=== PATIENT | female | born 1960 | race Caucasian/White ===

== ENCOUNTER → 2016-09-23 | Outpatient (CLI) | payer OTHER ==
--- NOTE | 2016-09-23 13:06 | RAD ---
Indication smoking history. Discomfort in the upper abdomen. PA and lateral views of the chest were obtained. Comparison is made to a study 02/03/2012. There are probable background changes of fibrosis. Heart size and pulmonary vessels are within normal limits. There is no consolidated pneumonia. Significant pleural fluid is not seen. There is no pneumothorax. IMPRESSION: No acute or focal process is seen in the chest.
== END | disposition home or self-care (01) ==
LOC: DXRADRC 12:36
PROVIDERS: ATTEND Nurse Practitioner Family
DX: R10.10 Upper abdominal pain, unspecified (principal); Z72.0 Tobacco use
CPT/HCPCS: 71020

== ENCOUNTER → 2016-11-04 | Outpatient (CLI) | payer OTHER ==
[~2016-11-04] VITALS: Ht 157.5 cm; Wt 81.6 kg
[~2016-11-04] MED LIST: SINCALIDE 1.63 MCG in IV NORMAL SALINE 50ML 30 ML IV ONE
--- NOTE | 2016-11-04 09:21 | RAD ---
Indication epigastric pain. Nausea and vomiting. Grayscale imaging was performed. Examination was targeted to the right upper quadrant. The visualized pancreas appears unremarkable. The gallbladder appears normal. The common bile duct diameter of approximately 4 mm is normal. There is a 1.6 cm mass seen associated with the right kidney. This demonstrates increased echogenicity and may be fatty in nature.. (Note is made that a CT examination 02/03/2012 demonstrated a cyst measuring approximately 2.6 cm in greatest dimension). A follow-up CT examination should be considered. There is increased echogenicity in the liver compatible with a fatty liver. There is an 8 mm cyst seen in the liver. IMPRESSION: Normal gallbladder. Fatty infiltration of the liver. Hepatic cyst. Indeterminate 1.6 cm mass associated with the right kidney. CT advised for additional evaluation
--- NOTE | 2016-11-04 11:46 | RAD ---
Indication abdominal pain. Nausea and vomiting for 3 weeks. Hepatobiliary scan was performed. 5.4 mCi of technetium labeled Choletec was administered. 1.6 mcg of CCK was diluted in saline and administered over 30 minutes. There is normal uptake of radiopharmaceutical in the liver. Activity is seen early in the biliary system and gallbladder. Following the Kinevac administration the estimated gallbladder ejection fraction is slightly in excess of 80%. IMPRESSION: Normal study
== END | disposition home or self-care (01) ==
LOC: US 07:56
PROVIDERS: ATTEND Internal Medicine Gastroenterology
DX: R10.13 Epigastric pain (principal); K76.89 Other specified diseases of liver; K76.0 Fatty (change of) liver, not elsewhere classified
CPT/HCPCS: 76705; 78226; 96374; 96375; A9537; J2805

== ENCOUNTER → 2016-11-11 | Outpatient (CLI) | payer OTHER ==
[~2016-11-11] MED LIST changes: +IOHEXOL 240 MG/ML 50ML VIAL. ONE; +IOHEXOL 300 MG/ML 75 ML VIAL. IV ONE; -SINCALIDE 1.63 MCG in IV NORMAL SALINE 50ML 30 ML IV ONE
--- NOTE | 2016-11-11 10:45 | RAD ---
Examination: CT of the abdomen and pelvis with oral and IV contrast History: History of renal mass, hepatic cyst, epigastric pain Comparison: None available Technique: Axial CT images of the abdomen pelvis were performed with oral and IV contrast. Coronal and sagittal reformats were performed PQRS Compliance Statement: One or more of the following individualized dose reduction techniques were utilized for this examination: 1. Automated exposure control 2. Adjustment of the mA and/or kV according to patient size 3. Use of iterative reconstruction technique Findings: Minimal bibasal lung atelectasis identified No evidence of free air identified in the abdomen There is a 9.5 mm cyst is identified in the right lobe of the liver and a smaller 6 mm cyst is identified in the inferior right lobe liver. The visualized spleen, adrenals grossly appears unremarkable. The gallbladder is mildly distended. The stomach is mildly distended . Visualized pancreas grossly appears unremarkable. The small bowel is nondilated. The appendix grossly appears unremarkable. Feces and gas noted throughout the colon. Few sigmoid colon diverticulosis. The urinary bladder is minimally distended. The visualized uterus, adnexa grossly appears unremarkable. The bilateral kidneys enhance symmetrically. There is a cystic structure identified in the right kidney measuring 2.6 cm likely a cyst. In the inferior aspect of the lateral portion of the right kidney, there is a fatty lesion identified measuring 1.5 x 1.1 cm likely an angiomyolipoma. No evidence of lytic bony destructive lesion identified. Impression: 1. 1.5 cm fatty lesion identified in the lateral aspect of the inferior right kidney likely angiomyolipoma. 2. Right renal cyst. 3. Small liver cysts. 4. Few sigmoid colon diverticulosis.
== END | disposition home or self-care (01) ==
LOC: CT 08:00
PROVIDERS: ATTEND Internal Medicine Gastroenterology
DX: N28.89 Other specified disorders of kidney and ureter (principal); K57.30 Diverticulosis of large intestine without perforation or abscess without bleeding; K76.89 Other specified diseases of liver; N28.1 Cyst of kidney, acquired
CPT/HCPCS: 74177; Q9966; Q9967

== ENCOUNTER → 2016-12-12 | Outpatient (CLI) | payer OTHER ==
--- NOTE | 2016-12-12 11:27 | RAD ---
Examination: Gastric Emptying Scintigraphy: Radiopharmaceutical: 2 mCi Tc-99m sulfur colloid mixed with solid meal History: Abdominal pain. Findings: A routine solid-phase gastric emptying scintigraphy examination was performed. Time activity curve was plotted. The T half measures 103 minutes. Impression: The gastric emptying is within upper limits of normal.
== END | disposition home or self-care (01) ==
LOC: NM 07:23
PROVIDERS: ATTEND Internal Medicine Gastroenterology
DX: R10.13 Epigastric pain (principal)
CPT/HCPCS: 78264; A9541

== ENCOUNTER → 2017-03-10 | Outpatient (CLI) | payer OTHER ==
--- NOTE | 2017-03-10 16:00 | RAD ---
Examination: 5 views of the lumbar spine History: History of lumbar pain for 2 months Comparison: None available Findings: The vertebral body heights are maintained. No evidence of listhesis. Mild degenerative changes facet joints at L3-L4, L4-L5, L5-S1 vertebral levels. Mild intervertebral disc height loss identified throughout the lumbar spine. No evidence of spondylolysis. Moderate aortic atherosclerosis. Impression: Mild degenerative changes lumbar spine.
== END | disposition home or self-care (01) ==
LOC: DXRADRC 10:37
PROVIDERS: ATTEND Physician Assistant
DX: M47.816 Spondylosis without myelopathy or radiculopathy, lumbar region (principal)
CPT/HCPCS: 72110

== ENCOUNTER → 2017-07-25 | Outpatient (CLI) | payer OTHER ==
--- NOTE | 2017-07-25 15:56 | RAD ---
Right supraclavicular ultrasound, 07/25/2017: History: Soft tissue enlargement The area of concern in the area of the right supraclavicular region was carefully scanned. Normal muscular and fatty shadows are seen. A small benign-appearing lymph node is seen. No mass is evident. IMPRESSION: No significant abnormality is detected. Clinical surveillance is suggested and if clinical concern persists CT or MR imaging may be useful for further evaluation.
== END | disposition home or self-care (01) ==
LOC: US 13:37
PROVIDERS: ATTEND Nurse Practitioner Family
DX: R22.1 Localized swelling, mass and lump, neck (principal)
CPT/HCPCS: 76536

== ENCOUNTER → 2017-12-20 | Outpatient (CLI) | payer OTHER ==
--- NOTE | 2017-12-20 14:13 | RAD ---
DATE: 12/20/2017 EXAM: DIGITAL SCREEN BILAT W/CAD HISTORY: Routine screening COMPARISON: 06/08/2016 This study was interpreted with the benefit of Computerized Aided Detection (CAD). The breast parenchyma shows scattered fibroglandular densities. Breast parenchyma level B. FINDINGS: No new or enlarging breast densities are seen. Minimal benign type calcifications are present. No suspicious microcalcifications have developed. IMPRESSION: Stable mammograms without evidence of malignancy. BI-RADS CATEGORY: 2 BENIGN FINDING(S) RECOMMENDED FOLLOW-UP: 12M 12 MONTH FOLLOW-UP PQRS compliance statement: Patient information was entered into a reminder system with a target due date for the next mammogram. Mammography is a sensitive method for finding small breast cancers, but it does not detect them all and is not a substitute for careful clinical examination. A negative mammogram does not negate a clinically suspicious finding and should not result in delay in biopsying a clinically suspicious abnormality. "Our facility is accredited by the [employer] Mammography Program."
== END | disposition home or self-care (01) ==
LOC: MAMMO 10:35
PROVIDERS: ATTEND Physician Assistant
DX: Z12.31 Encounter for screening mammogram for malignant neoplasm of breast (principal)
CPT/HCPCS: 77067

== ENCOUNTER → 2018-01-30 | Outpatient (CLI) | payer OTHER ==
--- NOTE | 2018-01-30 12:16 | RAD ---
Right RIBS with chest, 3 views, 01/30/2018: HISTORY: Rib pain No right rib fracture or bony abnormality is detected. There is no evidence of underlying pneumothorax or hemothorax. There are linear opacities in the lower chest bilaterally compatible with atelectasis versus scarring. The heart size is normal. IMPRESSION: 1. No significant right rib abnormality is detected. 2. Mild bibasilar discoid atelectasis. Electronically signed by: Jonathan Connelly MD (01/30/2018 12:13 PM) [facility]
== END | disposition home or self-care (01) ==
LOC: PMG 10:08
PROVIDERS: ATTEND Physician Assistant
DX: J98.11 Atelectasis (principal)
CPT/HCPCS: 71101

== ENCOUNTER 2018-02-14 01:06 | Observation (INO) | payer OTHER ==
[~2018-02-14] VITALS: Ht 157.5 cm; Wt 89.6 kg
--- NOTE | 2018-02-14 01:13 | ED.ADGEN ---
Past History Past Medical History: GERD, Hypertension Smoking: Cigarettes Adult General Chief Complaint Chief Complaint ". I ve been having epigastric discomfort..."."Zohra up into my chest... I been having it every night the last three days.." HPI HPI Patient is a 57 year old female who presents with above hx and complaints. Pt. localizes pain in epigastric area that radiates to her left chest. Pt. states pain in moderately severe. Patient does have a history of previous GERD. Patient does smoke. No history of diabetes. History of prior cardiac problems. No recent trauma. No recent travel. No changes in meds. Patient does have a history of some hypertension. Patient normally follows Dr. Sears. Review of Systems Review of Systems Constitutional: Denies fever or chills [] Eyes: Denies change in visual acuity, redness, or eye pain [] HENT: Denies nasal congestion or sore throat [] Respiratory: Denies cough or shortness of breath [] Cardiovascular: No additional information not addressed in HPI [] GI: Denies abdominal pain, nausea, vomiting, bloody stools or diarrhea [] : Denies dysuria or hematuria [] Musculoskeletal: Denies back pain or joint pain [] Integument: Denies rash or skin lesions [] Neurologic: Denies headache, focal weakness or sensory changes [] Endocrine: Denies polyuria or polydipsia [] All other systems were reviewed and found to be within normal limits, except as documented in this note. Family History Family History Noncontributory Current Medications Current Medications Current Medications Medications (Trade) Dose Ordered Sig/Sheyla Start Time Stop Time Status Last Admin Dose Admin Aspirin (Children'S Aspirin) 324 mg 1X ONCE 02/14/18 01:30 02/14/18 01:31 DC 02/14/18 01:46 324 MG Enoxaparin Sodium (Lovenox 80mg Syringe) 80 mg 1X ONCE 02/14/18 01:30 02/14/18 02:30 DC 02/14/18 01:55 80 MG Famotidine (Pepcid Vial) 20 mg 1X ONCE 02/14/18 01:30 02/14/18 01:31 DC 02/14/18 01:51 20 MG Magnesium Hydroxide (Milk Of Magnesia) 2,400 mg 1X ONCE 02/14/18 01:30 02/14/18 01:31 DC 02/14/18 01:49 2,400 MG Nitroglycerin (Nitro-Bid Oint) 1 inch 1X ONCE 02/14/18 02:00 02/14/18 02:01 DC 02/14/18 01:49 1 INCH Sodium Chloride 1,000 ml @ 100 mls/hr Q10H 02/14/18 01:30 02/14/18 11:29 02/14/18 01:44 100 MLS/HR Allergies Allergies Allergies Coded Allergies Type Severity Reaction Last Updated Verified No Known Drug Allergies 11/04/16 No Physical Exam Physical Exam Constitutional: Moderately acute distress, non-toxic appearance. [] HENT: Normocephalic, atraumatic, bilateral external ears normal, oropharynx moist, no oral exudates, nose normal. [] Eyes: PERRLA, EOMI, conjunctiva normal, no discharge. [] Neck: Normal range of motion, no tenderness, supple, no stridor. [] Cardiovascular:Heart rate regular rhythm, no murmur [] Lungs & Thorax: Bilateral breath sounds equal with scattered wheezes auscultation [] Abdomen: Bowel sounds normal, soft, epigastric tenderness, no masses, no pulsatile masses. []Patient declines rectal at this time. Skin: Warm, dry, no erythema, no rash. [] Back: No tenderness, no CVA tenderness. [] Extremities: No tenderness, no cyanosis, no clubbing, ROM intact, no edema. [] No cording appreciated. Neurologic: Alert and oriented X 3, normal motor function, normal sensory function, no focal deficits noted. [] Psychologic: Affect anxious, judgement normal, mood normal. [] Current Patient Data Vital Signs Vital Signs Date Time Temp Pulse Resp B/P (MAP) Pulse Ox O2 Delivery O2 Flow Rate FiO2 02/14/18 01:49 65 183/102 02/14/18 01:43 14 95 Room Air 02/14/18 01:07 98.6 Lab Results Laboratory Tests Test 02/14/18 01:25 White Blood Count 11.9 x10^3/uL (4.0-11.0) H Red Blood Count 4.79 x10^6/uL (3.50-5.40) Hemoglobin 14.0 g/dL (12.0-15.5) Hematocrit 41.9 % (36.0-47.0) Mean Corpuscular Volume 88 fL (79-100) Mean Corpuscular Hemoglobin 29 pg (25-35) Mean Corpuscular Hemoglobin Concent 34 g/dL (31-37) Red Cell Distribution Width 14.9 % (11.5-14.5) H Platelet Count 325 x10^3/uL (140-400) Neutrophils (%) (Auto) 64 % (31-73) Lymphocytes (%) (Auto) 26 % (24-48) Monocytes (%) (Auto) 6 % (0-9) Eosinophils (%) (Auto) 3 % (0-3) Basophils (%) (Auto) 1 % (0-3) Neutrophils # (Auto) 7.6 x10^3uL (1.8-7.7) Lymphocytes # (Auto) 3.2 x10^3/uL (1.0-4.8) Monocytes # (Auto) 0.7 x10^3/uL (0.0-1.1) Eosinophils # (Auto) 0.3 x10^3/uL (0.0-0.7) Basophils # (Auto) 0.1 x10^3/uL (0.0-0.2) Prothrombin Time 10.3 SEC (9.4-11.4) Prothrombin Time INR 1.0 (0.9-1.1) PTT 24 SEC (23-33) D-Dimer (Esmer) 0.47 mg/L (0.00-0.50) Sodium Level 141 mmol/L (136-145) Potassium Level 3.2 mmol/L (3.5-5.1) L Chloride Level 103 mmol/L (98-107) Carbon Dioxide Level 27 mmol/L (21-32) Anion Gap 11 (6-14) Blood Urea Nitrogen 9 mg/dL (7-20) Creatinine 1.0 mg/dL (0.6-1.0) Estimated GFR (Cockcroft-Gault) 56.7 Glucose Level 150 mg/dL (70-99) H Calcium Level 9.1 mg/dL (8.5-10.1) Magnesium Level 2.2 mg/dL (1.8-2.4) Total Bilirubin 0.6 mg/dL (0.2-1.0) Direct Bilirubin 0.1 mg/dL (0.0-0.2) Aspartate Amino Transferase (AST) 18 U/L (15-37) Alanine Aminotransferase (ALT) 12 U/L (14-59) L Alkaline Phosphatase 80 U/L (46-116) Creatine Kinase 100 U/L (26-192) Creatine Kinase MB (Mass) 0.8 ng/mL (0.0-3.6) Creatine Kinase MB Relative Index 0.8 % (0-4) Troponin I Quantitative < 0.017 ng/mL (0-0.055) CK-Tlg-G-Type Natriuretic Peptide 64 pg/mL (0-124) Total Protein 7.7 g/dL (6.4-8.2) Albumin 3.5 g/dL (3.4-5.0) Lipase 103 U/L (73-393) EKG EKG My interpretation of EKG shows a sinus rhythm at 74 bpm. Left axis. No findings acute STEMI with contralateral changes.[] Radiology/Procedures Radiology/Procedures My interpretation chest x-ray shows no acute cardiopulmonary findings. Does have some findings of linear infiltrates or atelectasis.[] Course & Med Decision Making Course & Med Decision Making Pertinent Labs and Imaging studies reviewed. (See chart for details) Discussed presentation, testing and tx. plan with Dr Oneal- will admit for further eval. and tx. [] Final Impression Final Impression 1. Chest pain/epigastric pain 2. Hypertension-Accelerated 3. Tobacco use[] 4. DM - elevated Glucose 5. Hx. GERD 6. Leukocytosis 7. Hypokalemia Dragon Disclaimer Dragon Disclaimer This electronic medical record was generated, in whole or in part, using a voice recognition dictation system. JACOBY GALEANA MD Feb 14, 2018 01:13
[2018-02-14] MEDS ORDERED: IV NORMAL SALINE 1,000ML 1,000 ML IV SCH (01:30)
[2018-02-14] MEDS ORDERED: MAGNESIUM HYDROXIDE 2,400 MG/30 ML ORAL.SUSP. PO ONE (01:30)
[2018-02-14] MEDS ORDERED: ENOXAPARIN ** NOTE DOSE ** SYRINGE SQ ONE ×2 (01:30→03:00)
[2018-02-14] MEDS ORDERED: ASPIRIN 81 MG TAB.CHEW PO ONE (01:30)
[2018-02-14] MEDS ORDERED: FAMOTIDINE 20 MG/2 ML VIAL IVP ONE (01:30)
[2018-02-14 01:46] LABS: BASO # 0.1 x10^3/uL (0.0-0.2); BASO % 1 % (0-3); EOS # 0.3 x10^3/uL (0.0-0.7); EOS % 3 % (0-3); HEMATOCRIT 41.9 % (36.0-47.0); LYMPH # 3.2 x10^3/uL (1.0-4.8); LYMPH % 26 % (24-48); MEAN CORPUSCULAR HEMOGLOBIN 29 pg (25-35); MEAN CORPUSCULAR HGB CONC 34 g/dL (31-37); MEAN CORPUSCULAR VOLUME 88 fL (79-100); MONO # 0.7 x10^3/uL (0.0-1.1); MONO % 6 % (0-9); NEUT # 7.6 x10^3uL (1.8-7.7); NEUT % 64 % (31-73); PLATELET COUNT 325 x10^3/uL (140-400); RED BLOOD COUNT 4.79 x10^6/uL (3.50-5.40); RED CELL DISTRIBUTION WIDTH 14.9 % (11.5-14.5); WHITE BLOOD COUNT 11.9 x10^3/uL (4.0-11.0)
[2018-02-14] MEDS ORDERED: NITROGLYCERIN OINT 1 GM PACKET. TP ONE (02:00)
[2018-02-14 02:06] LABS: ALBUMIN 3.5 g/dL (3.4-5.0); CALCIUM 9.1 mg/dL (8.5-10.1); DIRECT BILIRUBIN 0.1 mg/dL (0.0-0.2); GFR 56.7; MAGNESIUM 2.2 mg/dL (1.8-2.4); POTASSIUM 3.2 mmol/L (3.5-5.1); TOTAL BILIRUBIN 0.6 mg/dL (0.2-1.0); TOTAL PROTEIN 7.7 g/dL (6.4-8.2)
[2018-02-14] MEDS ORDERED: ONDANSETRON PF 4 MG/2 ML VIAL. IV PRN (02:15)
[2018-02-14] MEDS ORDERED: AZITHROMYCIN 250 MG TABLET. PO ONE ×2 (02:15→02:45)
[2018-02-14] MEDS ORDERED: MORPHINE SULFATE 2 MG/ML DISP.SYRIN. IV PRN (02:15)
[2018-02-14 02:28] LABS: BARBITURATES NEG (NEG); BENZODIAZEPINES NEG (NEG); CANNABINOIDS POS (NEG); COCAINE NEG (NEG); METHADONE NEG (NEG); OPIATES NEG (NEG); PHENCYCLIDINE NEG (NEG)
[2018-02-14 02:29] LABS: AMPHETAMINE/METHAMPHETAMINE NEG (NEG)
[2018-02-14] MEDS ORDERED: POTASSIUM CHLORIDE 20 MEQ/15 ML ORAL LIQUID. PO ONE (02:30)
[2018-02-14 02:32] LABS: BACTERIA,URINE FEW /HPF (0-FEW); BILIRUBIN,URINE NEG (NEG); CLARITY,URINE CLEAR; COLOR,URINE STRAW; GLUCOSE,URINE NEG (NEG); NITRITE,URINE NEG (NEG); RBC,URINE RARE /HPF (0-2); SQUAMOUS EPITHELIAL CELL,UR OCC /LPF; UROBILINOGEN,URINE 0.2 mg/dL (0.2 mg/dL); WBC,URINE OCC /HPF (0-4)
[2018-02-14] MEDS ORDERED: ANTI-COAG MONITOR BY PHARMACY. MC PRN (02:45)
[2018-02-14 04:29] VITALS: BP 148/89
[2018-02-14] MEDS ORDERED: LOSA50TA6 PO (04:53)
[2018-02-14] MEDS ORDERED: VARE1TAB20 PO (04:53)
[2018-02-14] MEDS ORDERED: ATOR10TA60 PO (04:53)
[2018-02-14] MEDS ORDERED: ASPI-630 PO (04:53)
[2018-02-14] MEDS ORDERED: MIRA50TA PO (04:53)
[2018-02-14] MEDS ORDERED: DEXL60CA2 PO (04:53)
[2018-02-14] MEDS ORDERED: ERYT250T14 PO (04:53)
[2018-02-14] MEDS ORDERED: PANTOPRAZOLE 40 MG TABLET. PO SCH (07:30)
--- NOTE | 2018-02-14 07:57 | RAD ---
Chest, 2 views, 02/14/2018: HISTORY: Chest and epigastric pain Comparison is made to a study from 01/30/2018. The heart size and pulmonary vascularity are normal. There are unchanged linear opacities in the lower chest bilaterally suggesting scarring. No pulmonary consolidation is seen. There is no evidence of pleural fluid. IMPRESSION: 1. Unchanged bilateral linear lower chest opacities compatible scarring. Recurrent discoid atelectasis is less likely. 2. The chest is otherwise unremarkable. Electronically signed by: Jonathan Connelly MD (02/14/2018 7:54 AM) [facility]
[2018-02-14] MEDS ORDERED: ASPIRIN 81 MG TAB.CHEW PO SCH ×2 (08:00→09:00)
[2018-02-14] MEDS ORDERED: ENOXAPARIN ** NOTE DOSE ** SYRINGE SQ SCH (09:00)
[2018-02-14] MEDS ORDERED: VARENICLINE 1 MG TABLET. PO SCH (09:00)
[2018-02-14] MEDS ORDERED: NITROGLYCERIN OINT 1 GM PACKET. TP SCH (09:00)
[2018-02-14] MEDS ORDERED: LOSARTAN 50 MG TABLET. PO SCH (09:00)
[2018-02-14] MEDS ORDERED: ERYTHROMYCIN BASE 250 MG TABLET PO SCH (09:00)
[2018-02-14] MEDS ORDERED: MIRABEGRON 25 MG TAB.ER.24H PO SCH (09:00)
[2018-02-14] MEDS ORDERED: FAMOTIDINE 20 MG TABLET PO SCH (09:00)
[2018-02-14] MEDS ORDERED: VARENICLINE 0.5 MG TABLET. PO SCH (09:30)
--- NOTE | 2018-02-14 10:39 | PDOC2 ---
RODERICKSAHRA Lara RAJWINDER 02/14/18 1039: CONSULT Date of Admission DATE: 02/14/18 TIME: 10:38 Reason for Consult: cp Problem List Problems Medical Problems: (1) Chest discomfort Status: Acute History of Present Illness Ms Austin is a 57 year old female who presents with complaints of epigastric and chest discomfort. She describes epigastric pain that she experiences frequently in the evening after eating. The discomfort usually lasts for several hours, is non radiating and not exertional. She states that last pm she had a late dinner, began to have epigastric discomfort that felt like a pressure or "bloating" which then radiated to her left chest and neck with an associated headache. She reports that she presented for evaluation since this was worse than usual. She denies any increase in symptoms with exertion, movement, position or deep inspiration. She was treated with nitrates in the ED but does not believe that improved her symptoms. She reports this am she continues to have mild epigastric discomfort that has never completely resolved but is improved. She denies other chest pain/discomfort, She denies dyspnea, congestive symptoms, palpitations, lightheadedness or syncope. She reports a history of gastroparesis and only eating once a day at dinner time. Cardiovascular: HTN, hyperipidemia GI: GERD, Other (gastroparesis) Hepatobiliary: Other (Hepatitis C) Musculoskeletal: low back pain Past Surgical History c-sections Family History hypothyroid, heart failure / sudden cardiac in her mother at age 59 Social History + 1/2 ppd smoker, she denies any significant ETOH. She denies any drug use but her UDS is positive for THC. Current Medications Current Medications Aspirin (Children'S Aspirin) 324 mg 1X ONCE PO Last administered on 02/14/18at 01:46; Start 02/14/18 at 01:30; Stop 02/14/18 at 01:31; Status DC Sodium Chloride 1,000 ml @ 100 mls/hr Q10H IV Last administered on 02/14/18at 01:44; Start 02/14/18 at 01:30; Stop 02/14/18 at 11:29 Magnesium Hydroxide (Milk Of Magnesia) 2,400 mg 1X ONCE PO Last administered on 02/14/18at 01:49; Start 02/14/18 at 01:30; Stop 02/14/18 at 01:31; Status DC Famotidine (Pepcid Vial) 20 mg 1X ONCE IVP Last administered on 02/14/18at 01: 51; Start 02/14/18 at 01:30; Stop 02/14/18 at 01:31; Status DC Nitroglycerin (Nitro-Bid Oint) 1 inch 1X ONCE TP Last administered on at 01:49; Start 02/14/18 at 02:00; Stop 02/14/18 at 02:01; Status DC Enoxaparin Sodium (Lovenox 80mg Syringe) 80 mg 1X ONCE SQ Last administered on 02/14/18at 01:55; Start 02/14/18 at 01:30; Stop 02/14/18 at 02:30; Status DC Potassium Chloride (KCl Oral Soln) 40 meq 1X ONCE PO Last administered on 02/14at 02:30; Start 02/14/18 at 02:30; Stop 02/14/18 at 02:31; Status DC Ondansetron HCl (Zofran) 4 mg PRN Q4HRS PRN IV NAUSEA/VOMITING; Start 02/14/18 at 02:15; Stop 02/15/18 at 02:14 Morphine Sulfate (Morphine 2mg Syringe) 2 mg PRN Q2HR PRN IV PAIN; Start at 02:15; Stop 02/15/18 at 02:14 Enoxaparin Sodium (Lovenox 100mg Syringe) 90 mg Q12HR SQ Last administered on at 09:51; Start 02/14/18 at 09:00 Nitroglycerin (Nitro-Bid Oint) 1 inch TID TP ; Start 02/14/18 at 09:00; Stop at 10:00; Status DC Aspirin (Children'S Aspirin) 81 mg DAILY PO ; Start 02/14/18 at 09:00; Stop at 09:00; Status DC Famotidine (Pepcid) 20 mg BID PO Last administered on 02/14/18at 09:50; Start at 09:00 Azithromycin (Zithromax) 500 mg 1X ONCE PO Last administered on 02/14/18at 02: 45; Start 02/14/18 at 02:45; Stop 02/14/18 at 02:46; Status DC Azithromycin (Zithromax) 250 mg 1X ONCE PO ; Start 02/14/18 at 02:15; Stop at 02:16; Status UNV Azithromycin (Zithromax) 250 mg QHS PO ; Start 02/14/18 at 21:00 Enoxaparin Sodium (Lovenox 100mg Syringe) 90 mg 1X ONCE SQ ; Start 02/14/18 at 03:00; Stop 02/14/18 at 03:01; Status DC Info (Anti-Coagulation Monitoring By Pharmacy) 1 each PRN DAILY PRN MC SEE COMMENTS; Start 02/14/18 at 02:45 Erythromycin (E-Mycin) 250 mg BID PO Last administered on 02/14/18at 09:49; Start 02/14/18 at 09:00 Losartan Potassium (Cozaar) 50 mg DAILY PO Last administered on 02/14/18at 09:48 ; Start 02/14/18 at 09:00 Aspirin (Children'S Aspirin) 81 mg [id number] PO Last administered on at 07:42; Start 02/14/18 at 08:00 Atorvastatin Calcium (Lipitor) 10 mg QHS PO ; Start 02/14/18 at 21:00 Pantoprazole Sodium (Protonix) 40 mg DAILYAC PO Last administered on 02/14/18at 07:42; Start 02/14/18 at 07:30 Mirabegron (Myrbetriq) 50 mg DAILY PO Last administered on 02/14/18at 09:49; Start 02/14/18 at 09:00 Varenicline (Chantix) 1 mg BID PO ; Start 02/14/18 at 09:00; Stop 02/14/18 at 09 :25; Status DC Varenicline (Chantix) 1 mg BID PO ; Start 02/14/18 at 09:30 Active Scripts Active Reported Myrbetriq (Mirabegron) 50 Mg Tab.er.24h 50 Mg PO DAILY Losartan Potassium 50 Mg Tablet 50 Mg PO DAILY Aspirin 81 Mg Tab.chew 81 Mg PO DAILY Chantix (Varenicline Tartrate) 1 Each Tab.ds.pk 1 Mg PO BID Erythromycin (Erythromycin Base) 250 Mg Tablet 250 Mg PO BID Dexilant (Dexlansoprazole) 60 Mg Cap.mp 30 Mg PO DAILY Atorvastatin Calcium 10 Mg Tablet 10 Mg PO QHS Allergies: Coded Allergies: No Known Drug Allergies (Unverified , 11/04/16) Review of System as per HPI with addition of chronic diarrhea otherwise negative General: Alert, Oriented X3, Cooperative, No acute distress HEENT: Atraumatic, EOMI, Mucous membr. moist/pink Lungs: Clear to auscultation Heart: Normal S1, Normal S2, Other (no significant murmurs, no clicks,rubs or gallops) Abdomen: Normal bowel sounds, Soft, No tenderness Extremities: No cyanosis, No edema, Normal pulses Neuro: Normal speech, Strength at 5/5 X4 ext Psych/Mental Status: Mental status NL, Mood NL VITALS Vital Signs Date Time Temp Pulse Resp B/P (MAP) Pulse Ox O2 Delivery O2 Flow Rate FiO2 02/14/18 09:48 57 148/89 02/14/18 04:30 Room Air 02/14/18 04:29 98.2 20 97 Labs Laboratory Tests Test 02/14/18 01:25 02/14/18 02:10 02/14/18 07:10 White Blood Count 11.9 x10^3/uL (4.0-11.0) Red Blood Count 4.79 x10^6/uL (3.50-5.40) Hemoglobin 14.0 g/dL (12.0-15.5) Hematocrit 41.9 % (36.0-47.0) Mean Corpuscular Volume 88 fL (79-100) Mean Corpuscular Hemoglobin 29 pg (25-35) Mean Corpuscular Hemoglobin Concent 34 g/dL (31-37) Red Cell Distribution Width 14.9 % (11.5-14.5) Platelet Count 325 x10^3/uL (140-400) Neutrophils (%) (Auto) 64 % (31-73) Lymphocytes (%) (Auto) 26 % (24-48) Monocytes (%) (Auto) 6 % (0-9) Eosinophils (%) (Auto) 3 % (0-3) Basophils (%) (Auto) 1 % (0-3) Neutrophils # (Auto) 7.6 x10^3uL (1.8-7.7) Lymphocytes # (Auto) 3.2 x10^3/uL (1.0-4.8) Monocytes # (Auto) 0.7 x10^3/uL (0.0-1.1) Eosinophils # (Auto) 0.3 x10^3/uL (0.0-0.7) Basophils # (Auto) 0.1 x10^3/uL (0.0-0.2) Prothrombin Time 10.3 SEC (9.4-11.4) Prothromb Time International Ratio 1.0 (0.9-1.1) Activated Partial Thromboplast Time 24 SEC (23-33) D-Dimer (Esmer) 0.47 mg/L (0.00-0.50) Sodium Level 141 mmol/L (136-145) Potassium Level 3.2 mmol/L (3.5-5.1) Chloride Level 103 mmol/L (98-107) Carbon Dioxide Level 27 mmol/L (21-32) Anion Gap 11 (6-14) Blood Urea Nitrogen 9 mg/dL (7-20) Creatinine 1.0 mg/dL (0.6-1.0) Estimated GFR (Cockcroft-Gault) 56.7 Glucose Level 150 mg/dL (70-99) Calcium Level 9.1 mg/dL (8.5-10.1) Magnesium Level 2.2 mg/dL (1.8-2.4) Total Bilirubin 0.6 mg/dL (0.2-1.0) Direct Bilirubin 0.1 mg/dL (0.0-0.2) Aspartate Amino Transf (AST/SGOT) 18 U/L (15-37) Alanine Aminotransferase (ALT/SGPT) 12 U/L (14-59) Alkaline Phosphatase 80 U/L (46-116) Creatine Kinase 100 U/L (26-192) Creatine Kinase MB (Mass) 0.8 ng/mL (0.0-3.6) Creatine Kinase MB Relative Index 0.8 % (0-4) Troponin I Quantitative < 0.017 ng/mL (0-0.055) < 0.017 ng/mL (0-0.055) OU-Rap-Z-Type Natriuretic Peptide 64 pg/mL (0-124) Total Protein 7.7 g/dL (6.4-8.2) Albumin 3.5 g/dL (3.4-5.0) Lipase 103 U/L (73-393) Urine Collection Type Void Urine Color Straw Urine Clarity Clear Urine pH 6.5 Urine Specific [place] 1.010 Urine Protein Neg (NEG-TRACE) Urine Glucose (UA) Neg mg/dL (NEG) Urine Ketones (Stick) Neg mg/dL (NEG) Urine Blood Trace (NEG) Urine Nitrite Neg (NEG) Urine Bilirubin Neg (NEG) Urine Urobilinogen Dipstick 0.2 mg/dL (0.2 mg/dL) Urine Leukocyte Esterase Neg (NEG) Urine RBC Rare /HPF (0-2) Urine WBC Occ /HPF (0-4) Urine Squamous Epithelial Cells Occ /LPF Urine Bacteria Few /HPF (0-FEW) Urine Opiates Screen Neg (NEG) Urine Methadone Screen Neg (NEG) Urine Barbiturates Neg (NEG) Urine Phencyclidine Screen Neg (NEG) Urine Amphetamine/Methamphetamine Neg (NEG) Urine Benzodiazepines Screen Neg (NEG) Urine Cocaine Screen Neg (NEG) Urine Cannabinoids Screen Pos (NEG) Urine Ethyl Alcohol Neg (NEG) Images EKG sinus rhythm, delayed R transition, no acute abnormalities. Assessment/Plan 1. chest pain-atypical - check echo, GI cocktail x1, serial enzymes. IF no significant abn would be ok for DC from CV perspective. Would suggest outpatient stress test due to comorbidities and family history of premature coronary disease/scd. 2. Hypertension- resume home antihypertensives and check echo 3. hypokalemia - replace 4. hyperlipidemia - check lipids 5. GERD/Gastroparesis - Per IM, consider GI eval/follow up SHUKRI QUINONES MD 02/14/18 1608: CONSULT Assessment/Plan Agree with above ENTRY TECH note. Pt. seen and examined. Echo wnl. No significant cardiac issues. Supportive care. Will consider outpt MPI. SAHRA VAUGHN APRN Feb 14, 2018 10:39 SHUKRI QUINONES MD Feb 14, 2018 16:08
[2018-02-14] MEDS ORDERED: LIDO:MAALOX 1:1 20 ML SINGLE DOSE. PO ONE (10:45)
[2018-02-14] MEDS ORDERED: POTASSIUM CHLORIDE 20 MEQ TABLET.ER. PO ONE (10:45)
--- NOTE | 2018-02-14 11:03 | EKG ---
[address] [address] Test Date: 2018-02-14 Test Time: 01:17:52 Pat Name: KELIN GUTIERREZ Department: Room: 120 A Gender: F Supervisor Phosphoric Acid: : 1960 Requested By: JACOBY GALEANA Order Number: [id number] Reading MD: Scottie Jolley MD Measurements Intervals [place] Rate: 74 P: 45 GA: 164 QRS: -6 QRSD: 82 T: -28 QT: 336 QTc: 378 Interpretive Statements SINUS RHYTHM NON-SPECIFIC ST/T CHANGES Electronically Signed On 02-15-2018 7:40:21 CDT by Scottie Jolley MD
[2018-02-14 11:42] VITALS: BP 123/85
[2018-02-14 13:52] LABS: THYROID STIM HORMONE (TSH) 6.455 uIU/mL (0.358-3.740)
[2018-02-14 15:50] VITALS: BP 135/89
--- NOTE | 2018-02-14 15:50 | CARD ---
MR#: [id number] Date of Study: 02/14/2018 Ordering Physician: SAHRA VAUGHN, Referring Physician: PAULINA ZAVALA Tech: AMINATA Loja APPROVED REPORT EXAM: Two-dimensional and M-mode echocardiogram with Doppler and color Doppler. Other Information Quality : FairHR: 58bpm Technically limited study due to body habitus. INDICATION Chest Pain RISK FACTORS Obesity 2D DIMENSIONS RVDd2.9 (2.9-3.5cm)Left Atrium(2D)3.0 (1.6-4.0cm) IVSd1.2 (0.7-1.1cm)Aortic Root(2D)2.8 (2.0-3.7cm) LVDd3.9 (3.9-5.9cm)LVOT Diameter2.0 (1.8-2.4cm) PWd1.2 (0.7-1.1cm)LVDs2.8 (2.5-4.0cm) FS (%) 28.9 %SV37.8 ml LVEF(%)56.2 (>50%) Aortic Valve AoV Peak Jeremiah.179.5cm/sAoV VTI42.5cm AO Peak GR.12.9mmHgLVOT Peak Jeremiah.104.1cm/s LVOT VTI 24.90cmAO Mean GR.7mmHg IVELISSE (VMAX)1.47zs8GAK (VTI)1.82cm2 Mitral Valve MV E Mugwumtb38.3cm/sMV E Peak Gr.31mmHg MV DECEL [id number] A Bcqwztvu72.4cm/s E/A Ratio1.3 Pulmonary Valve PV Peak Xtlfqrie32.9cm/sPV Peak Grad.2mmHg Tricuspid Valve RAP [id number] LEFT VENTRICLE The left ventricle is normal size. There is mild concentric left ventricular hypertrophy. The left ve ntricular systolic function is normal. The ejection fraction is estimated at 55-60%. There is normal LV segmental wall motion. The left ventricular diastolic function and filling is normal for age. RIGHT VENTRICLE The right ventricle is normal size. The right ventricular systolic function is normal. ATRIA The left atrium size is normal. The right atrium size is normal. The interatrial septum is intact wit h no evidence for an atrial septal defect or patent foramen ovale as noted on 2-D or Doppler imaging. AORTIC VALVE The aortic valve is not well visualized. Doppler and Color Flow revealed no significant aortic regurg itation. There is no significant aortic valvular stenosis. MITRAL VALVE The mitral valve is mildly thickened. There is no evidence of mitral valve prolapse. There is no mitr al valve stenosis. Doppler and Color Flow revealed no mitral valve regurgitation noted. TRICUSPID VALVE The tricuspid valve is not well visualized. Doppler and Color Flow revealed trace tricuspid regurgita tion. There is no tricuspid valve prolapse or vegetation. There is no tricuspid valve stenosis. PULMONIC VALVE The pulmonic valve is not well visualized. Doppler and Color Flow revealed no pulmonic valvular regur gitation. There is no pulmonic valvular stenosis. GREAT VESSELS The aortic root is normal in size. The IVC is dilated. The IVC collapses <50% with inspiration. PERICARDIAL EFFUSION There is no pleural effusion. There is no evidence of significant pericardial effusion. Critical Notification Critical Value: No <Conclusion> The left ventricular systolic function is normal. The ejection fraction is estimated at 55-60%. There is normal LV segmental wall motion. Doppler and Color Flow revealed trace tricuspid regurgitation. There is no evidence of significant pericardial effusion. Signed by : Christian Tucker, Electronically Approved : 02/14/2018 15:49:42
--- NOTE | 2018-02-14 17:42 | PN ---
DATE: 02/14/2018 HISTORY OF PRESENT ILLNESS: The patient is a 57-year-old female patient, who came to the Emergency Room with complaint of epigastric and chest discomfort. She describes epigastric pain that she experiences frequently in the evening after eating. The discomfort lasts for several hours; it is nonradiating and not exertional. She states that yesterday evening, she had late dinner, began to have epigastric discomfort that felt like a pressure for bloating, which then radiated to the left side of the chest and neck with an associated headache. She came to the Emergency Room for evaluation as this was worse than usual. She denied any increase in symptoms with exertion, movement, position, or deep inspiration. She was treated with nitrates in the Emergency Department, does not believe that this has improved her symptoms. She reports that she continued to have mild epigastric discomfort, which has never completely resolved, but improved. She denied any chest pain, shortness of breath, orthopnea or paroxysmal nocturnal dyspnea. Denied any nausea or vomiting. Denied any diaphoresis. The patient is known to have gastroparesis for which she takes erythromycin prescribed to her by Dr. Bauer. PAST MEDICAL HISTORY: Significant for hypertension, hyperlipidemia, gastroesophageal reflux disease, gastroparesis, and hepatitis C that was treated and responded to treatment. PAST SURGICAL HISTORY: Significant for C-sections, esophagogastroduodenoscopy, colonoscopy, and liver biopsy. ALLERGIES: She is intolerant to PERCOCET, but has no known drug allergies. MEDICATIONS: She is currently on following medications: She is on erythromycin base 250 mg twice a day, Chantix 1 mg twice a day, atorvastatin calcium 10 mg at bedtime. She is on losartan potassium 50 mg once a day, aspirin 81 mg once a day, Dexilant 30 mg once a day, and Myrbetriq 50 mg daily. FAMILY HISTORY: She has 2 brothers and 1 sister, all younger and healthy. Her father at the age of 60 because of lung cancer. Mother at the age of 59 because of congestive heart failure. SOCIAL HISTORY: She is , currently lives with her boyfriend. She has 2 sons and 2 daughters. She smokes a pack a day, does not drink alcohol or use any recreational drugs. She works for the [employer]. REVIEW OF SYSTEMS: The patient denied any blurring of vision, cataract, glaucoma or macular degeneration. Denied any earache, tinnitus or sensorineural deafness. Denied any nosebleeds, stuffy nose or postnasal drip. Denied any sore throat, sore tongue, toothache, hoarseness of voice or difficulty swallowing. Denied any nausea, vomiting, diarrhea or constipation. Denied any hematemesis, melena or hematochezia. Denied any dysuria, frequency or hematuria. PHYSICAL EXAMINATION: GENERAL: When I examined her, she looked well and was clearly in no apparent respiratory distress. There is no pallor, jaundice, cyanosis, or thyromegaly. No jugular venous distension. No limb edema. VITAL SIGNS: Her heart rate was 71, blood pressure was 144/92, temperature was 98.2, respiratory rate was 17 and oxygen saturation was 98% on room air. HEAD, EYES, EAR, NOSE AND THROAT: Normocephalic, atraumatic. NECK: Supple. HEART: Showed normal first and second heart sounds with no gallop, rub or murmur. CHEST: Clear to auscultation. No crepitation or rhonchi. ABDOMEN: Distended, soft, nontender. NEUROLOGIC: She was awake, alert, responding appropriately. Cranial nerves intact. EXTREMITIES: She moves extremities without difficulty. She ambulates without assistance or assistive devices. LABORATORY DATA: On admission, her white cell count was 11,900, hemoglobin 14, hematocrit 42, MCV 88 and platelet count of 325,000 with normal manual differential. Her prothrombin time was 10.3, INR of 1, aPTT was 24. D-dimer was 0.47. Chemistry showed a serum sodium 141, potassium 3.2, chloride 103, bicarbonate 27, anion gap of 11, BUN 9, creatinine 1, estimated GFR was 56 mL per minute. Her glucose 150, calcium was 9.1, magnesium was 2.2. Total bilirubin, AST, ALT, alkaline phosphatase were normal. Her first set of cardiac enzymes showed troponin to be less than 0.017. Her total protein was 7.7, albumin was 3.5 and lipase was 103. The patient was admitted to do 2 more sets of cardiac enzyme and consult the cardiology and check her fasting lipid profile. She has 2 more sets of cardiac enzymes that were negative. Her fasting lipid profile showed serum triglyceride of 172. Total cholesterol 212, LDL cholesterol 43, VLDL was 34, and HDL cholesterol was 35, total cholesterol to HDL cholesterol ratio was 6 and her TSH was 6.455. Her urinalysis was unremarkable and urine toxicology screen was also positive for cannabinoids. Her chest x-ray showed that unchanged bilateral linear lower chest opacities compatible with scarring, recurrent discoid atelectasis, less likely. The chest is otherwise unremarkable. She has had an echocardiogram done, which basically showed that her left ventricular systolic function is normal, ejection fraction estimated at 55-60%. She has normal left ventricular segmental wall motion. She has trace tricuspid regurgitation and no significant pericardial effusion. The patient was discharged home to continue on her atorvastatin 10 mg at bedtime, Chantix 1 mg twice a day, Myrbetriq 50 mg once a day, losartan 50 mg once a day, erythromycin base 250 mg twice a day, Dexilant 30 mg once a day. FINAL DISCHARGE DIAGNOSES: Chest pain, myocardial infarction is ruled out. The patient is known to have gastroesophageal reflux disease and gastroparesis, hypertension, hyperlipidemia, treated hepatitis C. The patient was advised to follow with her leasing sales consultant, Dr. Bauer for her diabetic gastroparesis and also to monitor the response to treatment to her hepatitis C. I also recommended that she increase her atorvastatin to 20 mg given her fasting lipid profile showed her LDL still high. She will follow with cardiology team for an outpatient stress testing. PAULINA ZAVALA MD DR: ABBE/fallon JOB#: [id number] / [id number]
[2018-02-14] MEDS ORDERED: AZITHROMYCIN 250 MG TABLET. PO SCH (21:00)
[2018-02-14] MEDS ORDERED: LACTOBACILLUS RHAMNOSUS GG 1 CAPSULE. PO SCH (21:00)
[2018-02-14] MEDS ORDERED: ATORVASTATIN CALCIUM 10 MG TABLET. PO SCH (21:00)
[2018-02-15 02:07] LABS: HEMOGLOBIN A1C 6.2 % (4.8-5.6)
== END 2018-02-14 19:55 | disposition home or self-care (01) ==
LOC: ER 01:06 → 1 SOUTH 02:00 → INTOOBSV 02:00
PROVIDERS: ADMIT Internal Medicine; ATTEND Internal Medicine
DX: R07.89 Other chest pain (principal); I10 Essential (primary) hypertension; E78.5 Hyperlipidemia, unspecified; K21.9 Gastro-esophageal reflux disease without esophagitis; F17.210 Nicotine dependence, cigarettes, uncomplicated; E87.6 Hypokalemia; K31.84 Gastroparesis; B19.20 Unspecified viral hepatitis C without hepatic coma; Z80.1 Family history of malignant neoplasm of trachea, bronchus and lung; Z82.41 Family history of sudden cardiac death; Z82.49 Family history of ischemic heart disease and other diseases of the circulatory system; Z79.899 Other long term (current) drug therapy
CPT/HCPCS: 36415; 71046; 80048; 80061; 80076; 80307; 81001; 82553; 83036; 83690; 83735; 83880; 84443; 84484; 85025; 85379; 85610; 85730; 93005; 93306; 96372; 96374; 99285; G0238; G0378; J0456; J1650; S0028; G0379; G0479; J7030

== ENCOUNTER 2018-07-21 05:18 | Emergency (ER) | payer OTHER ==
[~2018-07-21] VITALS: Ht 157.5 cm; Wt 81.6 kg
[~2018-07-21 05:18] MED LIST changes: +ASPI-630 PO; +ATOR10TA60 PO; +DEXL60CA2 PO; +ERYT250T14 PO; -IOHEXOL 240 MG/ML 50ML VIAL. ONE; -IOHEXOL 300 MG/ML 75 ML VIAL. IV ONE; +LOSA50TA86 PO; +MIRA50TA PO; +VARE1TAB20 PO
--- NOTE | 2018-07-21 05:22 | ED.ADGEN ---
Past History Past Medical History: GERD, Hypertension Past Surgical History: , Other Smoking: Cigarettes Alcohol Use: None Drug Use: None Adult General Chief Complaint Chief Complaint "...I ve had a cold.. and been coughing a lot...so I though my was Rt. 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 but the eye seemed to be bothering me more this morning..." HPI HPI Patient is a 57 year old female who presents with above hx and complaints right eye conjunctivitis. Redness and I have been present for at least 2 days. Has had increased irritation and I this morning. No recent travel. No specific ill contacts but is exposed to children at daycare. No history immunosuppression. Patient has for the past year had glasses replaced. Patient does not remember having any dilated exam. Patient on exam does have some lid edema. There is very mild limbus injection. Mild consensual photophobia. 20/30 Rt. , 20/25 Lt. eye. Twenty 20/20 both. No significant Flurescrin up take. Discussed findings with Dr. Reyes. Advised to place on antibiotic and tx. as viral/bacterial conjunctivitis. Pt.to call for office follow up Monday. Review of Systems Review of Systems Constitutional: Denies fever or chills [] Eyes: Denies change in visual acuity, . Complaints of rt.eye conjunctivitis. HENT: Hx of nasal congestion and sore throat [] Respiratory: Hx. of cough non-productive. Cardiovascular: No additional information not addressed in HPI [] GI: Denies abdominal pain, nausea, vomiting, bloody stools or diarrhea [] : Denies dysuria or hematuria [] Musculoskeletal: Denies back pain or joint pain [] Integument: Denies rash or skin lesions [] Neurologic: Denies headache, focal weakness or sensory changes [] Endocrine: Denies polyuria or polydipsia [] All other systems were reviewed and found to be within normal limits, except as documented in this note. Family History Family History Noncontributory Current Medications Current Medications Current Medications Medications (Trade) Dose Ordered Sig/Sheyla Start Time Stop Time Status Last Admin Dose Admin Cyclopentolate HCl (Cyclogyl) 1 drop 1X ONCE 07/21/18 06:00 07/21/18 06:08 DC 07/21/18 06:01 1 DROP Diphtheria/ Tetanus/Acell Pertussis (Boostrix) 0.5 ml ONCE ONCE 07/21/18 06:00 07/21/18 06:08 DC 07/21/18 06:00 0.5 ML Erythromycin (Romycin) 0.25 inch 1X ONCE 07/21/18 06:00 07/21/18 06:08 DC 07/21/18 06:01 0.25 INCH Fluorescein Sodium (Ful-Nakia 1mg) 1 strip 1X ONCE 07/21/18 05:30 07/21/18 05:31 DC 07/21/18 06:01 1 STRIP Hydrocodone Bitartrate/ Ibuprofen (Vicoprofen 7.5-200) 1 tab STK-MED ONCE 07/21/18 05:57 07/21/18 06:08 DC Tetracaine HCl (Tetracaine) 1 drop 1X ONCE 07/21/18 05:30 07/21/18 05:31 DC 07/21/18 06:01 1 DROP Allergies Allergies Allergies Coded Allergies Type Severity Reaction Last Updated Verified No Known Drug Allergies 11/04/16 No Physical Exam Physical Exam Constitutional: mild distress, non-toxic appearance. [] HENT: Normocephalic, atraumatic, bilateral external ears normal, oropharynx moist, no oral exudates, nose swollen turbinates and rhinorrhea. Eyes: PERRLA, EOMI, conjunctiva injected Rt. eye, no hair loss discharge. [] Neck: Normal range of motion, no tenderness, supple, no stridor. [] Cardiovascular:Heart rate regular rhythm, no murmur [] Lungs & Thorax: Bilateral breath equal with scattered wheezing on auscultation [] Abdomen: Bowel sounds normal, soft, no tenderness, no masses, no pulsatile masses. [] Skin: Warm, dry, no erythema, no rash. [] Back: No tenderness, no CVA tenderness. [] Extremities: No tenderness, no cyanosis, no clubbing, ROM intact, no edema. [] Neurologic: Alert and oriented X 3, normal motor function, normal sensory function, no focal deficits noted. [] Psychologic: Affect normal, judgement normal, mood normal. [] Current Patient Data Vital Signs Vital Signs Date Time Temp Pulse Resp B/P (MAP) Pulse Ox O2 Delivery O2 Flow Rate FiO2 07/21/18 05:49 98.1 62 18 93 Room Air EKG EKG [] Radiology/Procedures Radiology/Procedures [] Course & Med Decision Making Course & Med Decision Making Pertinent Labs and Imaging studies reviewed. (See chart for details). Pt.to call Dr. Reyes office for followup. Use small amount of erythromycin ointment 4x day. Frequent hand washing. Must follow up. Return if any concerns, increased pain, redness or decrease in vision. [] Final Impression Final Impression 1. Rt eye Conjunctivitis[] Dragon Disclaimer Dragon Disclaimer This electronic medical record was generated, in whole or in part, using a voice recognition dictation system. JACOBY GALEANA MD Jul 21, 2018 05:22
[2018-07-21] MEDS ORDERED: TETRACAINE 0.5% OPHTH SOLUTION 4ML BOTTLE. OU ONE (05:30)
[2018-07-21] MEDS ORDERED: FLUORESCEIN 1MG EYE STRIP. OU ONE (05:30)
[2018-07-21] MEDS ORDERED: ERYTHROMYCIN 0.5% OPHTH OINTMENT 1GM TUBE. ONE (05:34)
[2018-07-21] MEDS ORDERED: CYCLOPENTOLATE 1% OPTH SOLUTION 2ML BOTTLE. ONE (05:34)
[2018-07-21] MEDS ORDERED: DIPHTH,PERTUSS(ACELL),TET TOX 0.5 ML DISP.SYRIN. VAX IM ONE ×2 (05:37→06:00)
[2018-07-21 05:49] VITALS: BP 156/94
[2018-07-21] MEDS ORDERED: HYDROcodon/IBUPROFEN 7.5/200MG 1 TAB TABLET ONE (05:57)
[2018-07-21] MEDS ORDERED: CYCLOPENTOLATE 1% OPTH SOLUTION 2ML BOTTLE. OD ONE (06:00)
[2018-07-21] MEDS ORDERED: HYDROcodon/IBUPROFEN 7.5/200MG 1 TAB TABLET PO ONE (06:00)
[2018-07-21] MEDS ORDERED: ERYTHROMYCIN 0.5% OPHTH OINTMENT 1GM TUBE. OD ONE (06:00)
== END 2018-07-21 06:08 | disposition home or self-care (01) ==
LOC: ER 05:18
DX: H10.9 Unspecified conjunctivitis (principal); J34.89 Other specified disorders of nose and nasal sinuses; K21.9 Gastro-esophageal reflux disease without esophagitis; I10 Essential (primary) hypertension; F17.210 Nicotine dependence, cigarettes, uncomplicated
CPT/HCPCS: 90471; 90715; 99283-25

== ENCOUNTER → 2018-11-06 | Outpatient (CLI) | payer OTHER ==
--- NOTE | 2018-11-06 16:55 | RAD ---
Examination: FOOT BILAT 2V History: Pain after tripping. Heel pain on the left. Comparison/Correlation: None Findings: Frontal and lateral views of the right foot and frontal and lateral views of the left foot were obtained. Small right calcaneal spur is present. Very small left calcaneal spur is suggested. No acute fracture or bony destruction. Osteopenia noted. Degenerative narrowing of joint spaces consistent with age noted. Os navicular bilaterally is noted. Impression: No acute process. Consider further imaging if occult process is a persistent concern. Electronically signed by: Samir Howard MD (11/06/2018 4:51 PM) [facility]
== END | disposition home or self-care (01) ==
LOC: PMG 15:29
PROVIDERS: ATTEND Physician Assistant
DX: M77.31 Calcaneal spur, right foot (principal); M85.872 Other specified disorders of bone density and structure, left ankle and foot; M85.871 Other specified disorders of bone density and structure, right ankle and foot
CPT/HCPCS: 73620

== ENCOUNTER 2018-12-05 14:44 | Observation (INO) | payer OTHER ==
[~2018-12-05] VITALS: Ht 157.5 cm; Wt 78.0 kg
--- NOTE | 2018-12-05 15:48 | PHYS DOC ---
Past History Past Medical History: Hypertension (OFELIA SALCEDO DO) Past Medical History: Kidney Stones, UTI (JACOBY GALEANA MD) Past Surgical History: No Surgical History (OFELIA SALCEDO DO) Smoking: Cigarettes Additional Smoking Information: 1 pack Alcohol Use: None Drug Use: None (OFELIA SALCEDO DO) Adult General Chief Complaint Chief Complaint: FLANK PAIN HPI HPI Patient is a 4-year-old female presents with left upper abdominal pain that started several hours ago. At worst it was a 5 out of 10. Currently a 1 out of 10 for discomfort. No medicine is been taken at home. No nausea or vomiting. No radiation of the pain. It was "uncomfortable" but unable to describe as far Sharp, dull, achy, burning, or crampy. No home therapy has been taken. No previous history of similar discomfort. No worsening with exertion. No nausea, vomiting, or diaphoresis. Patient does have a history of hypertension and smoking.[] (OFELIA SALCEDO DO) Review of Systems Review of Systems Constitutional: Denies fever or chills [] Eyes: Denies change in visual acuity, redness, or eye pain [] HENT: Denies nasal congestion or sore throat [] Respiratory: Denies cough or shortness of breath [] Cardiovascular: No additional information not addressed in HPI [] GI: See history of present illness[] : Denies dysuria or hematuria [] Musculoskeletal: Denies back pain or joint pain [] Integument: Denies rash or skin lesions [] Neurologic: Denies headache, focal weakness or sensory changes [] Endocrine: Denies polyuria or polydipsia [] All other systems were reviewed and found to be within normal limits, except as documented in this note. (OFELIA SALCEDO DO) Current Medications Current Medications Current Medications Medications (Trade) Dose Ordered Sig/Sheyla Start Time Stop Time Status Last Admin Dose Admin Ketorolac Tromethamine (Toradol 30mg Vial) 30 mg 1X ONCE 12/05/18 15:45 12/05/18 15:46 UNV (OFELIA SALCEDO DO) Allergies Allergies Allergies Coded Allergies Type Severity Reaction Last Updated Verified No Known Drug Allergies 11/04/16 No (OFELIA SALCEDO DO) Physical Exam Physical Exam Constitutional: Well developed, well nourished, no acute distress, non-toxic appearance. [] HENT: Normocephalic, atraumatic, bilateral external ears normal, oropharynx moist, no oral exudates, nose normal. [] Eyes: PERRLA, EOMI, conjunctiva normal, no discharge. [] Neck: Normal range of motion, no tenderness, supple, no stridor. [] Cardiovascular:Heart rate regular rhythm, no murmur [] Lungs & Thorax: Bilateral breath sounds clear to auscultation [] Abdomen: Bowel sounds normal, soft, left upper quadrant tenderness to palpation just inferior to the ribs. No rebound, no guarding, no rigidity, no masses, no pulsatile masses. [] Skin: Warm, dry, no erythema, no rash. [] Back: No tenderness, no CVA tenderness. [] Extremities: No tenderness, no cyanosis, no clubbing, ROM intact, no edema. [] Neurologic: Alert and oriented X 3, normal motor function, normal sensory function, no focal deficits noted. [] Psychologic: Affect normal, judgement normal, mood normal. [] ([facility]) Current Patient Data Vital Signs Vital Signs Date Time Temp Pulse Resp B/P (MAP) Pulse Ox O2 Delivery O2 Flow Rate FiO2 12/05/18 15:27 97.9 59 96 Room Air ([facility]) EKG EKG EKG shows sinus rhythm at 54 bpm, no ST elevation, normal axis, QTC 451 ms, interpreted by me at 1603[] ([facility]) Radiology/Procedures Radiology/Procedures CT ABDOMEN PELVIS WO CONTRAST Indication: Upper abdominal pain, nausea, vomiting. Exposure: One or more of the following individualized dose reduction techniques were utilized for this examination: 1. Automated exposure control 2. Adjustment of the mA and/or kV according to patient size 3. Use of iterative reconstruction technique. Comparison: Images are available from November 11, 2016 but the report from that exam is not available. Technique: No intravenous contrast given. No oral contrast per request. Findings: Evaluation of solid viscera, bowel and vasculature is compromised by the noncontrast technique. Lung bases are clear. Mild linear fibrosis or atelectasis. Mild blebs. Mild coronary artery calcification. Small hypodense lesion of the lateral right liver is stable as is a small lesion at the inferior right lobe of liver. Spleen is not enlarged. Pancreas is unremarkable. No evidence of adrenal mass. Fatty lesion of the right kidney compatible with angiomyolipoma is stable. Low-density lesion of the more superior left kidney measures cystic density compatible with cysts, appears similar to the prior study. Kidneys demonstrate symmetric enhancement. No evidence of hydronephrosis. No calcified gallstone. Aorta is nonaneurysmal, demonstrates atherosclerotic calcification. Small inguinal lymph nodes are identified slightly larger than on prior study. For instance, left inguinal lymph node measures 8 mm short axis, compared with 6 mm short axis previously. No significant retroperitoneal or mesenteric lymph node enlargement. No significant small bowel distention. Colonic diverticulosis. No evidence of acute colitis. The appendix is normal. There is mild density within the appendiceal lumen may represent oral contrast from a prior radiology procedure. No evidence of ascites or pneumoperitoneum. No pelvic mass is visualized. There is diffuse irregular urinary bladder wall thickening. Vertebral body height and alignment are intact. IMPRESSION: 1. Diffuse irregular urinary bladder wall thickening. Note that wall thickening was also seen on prior exam, but appears greater today. Correlate for cystitis. Although less likely due to its diffuse nature, neoplasm of the urinary bladder wall is not possible to exclude. 2. Stable renal and hepatic lesions since prior exam. 3. Mild nonspecific prominence of inguinal lymph nodes, may be reactive. PORTABLE CHEST 1V History: Left upper abdominal pain and left lower chest pain, nausea and vomiting Comparison: February 14, 2018 Findings: Single view of the chest is submitted. There is again some linear likely fibrotic change left lung base. There is no lobar consolidation, pleural fluid, pneumothorax. Heart size is stable, within normal limits. There is atherosclerotic calcification near aortic arch. Impression: 1. No acute radiographic abnormality is identified.[] (OFELIA SALCEDO DO) Radiology/Procedures [address] [address] IMAGING REPORT Signed PATIENT: KELIN GUTIERREZ ACCOUNT: [id number] : 1960 LOCATION: ER AGE: 58 SEX: F EXAM STATUS: REG ER ORD. PHYSICIAN: OFELIA SALCEDO DO REASON: left low chest/upper abdominal pain, nausea, vomiting PROCEDURE: PORTABLE CHEST 1V PORTABLE CHEST 1V History: Left upper abdominal pain and left lower chest pain, nausea and vomiting Comparison: February 14, 2018 Findings: Single view of the chest is submitted. There is again some linear likely fibrotic change left lung base. There is no lobar consolidation, pleural fluid, pneumothorax. Heart size is stable, within normal limits. There is atherosclerotic calcification near aortic arch. Impression: 1. No acute radiographic abnormality is identified. Electronically signed by: Ramírez Lennon MD (12/05/2018 4:23 PM) [place] [id number] DICTATED AND SIGNED BY: RAMÍREZ LENNON MD DATE: 12/05/18 3818 CC: OFELIA SALCEDO DO; SCOTT WANG PA ~ [place] [address] IMAGING REPORT Signed PATIENT: KELIN GUTIERREZ ACCOUNT: [id number] : 1960 LOCATION: ER AGE: 58 SEX: F EXAM STATUS: REG ER ORD. PHYSICIAN: OFELIA SALCEDO DO REASON: left low chest/upper abdominal pain, nausea, vomiting Hx:Gastropa PROCEDURE: CT ABDOMEN PELVIS WO CONTRAST CT ABDOMEN PELVIS WO CONTRAST Indication: Upper abdominal pain, nausea, vomiting. Exposure: One or more of the following individualized dose reduction techniques were utilized for this examination: 1. Automated exposure control 2. Adjustment of the mA and/or kV according to patient size 3. Use of iterative reconstruction technique. Comparison: Images are available from November 11, 2016 but the report from that exam is not available. Technique: No intravenous contrast given. No oral contrast per request. Findings: Evaluation of solid viscera, bowel and vasculature is compromised by the noncontrast technique. Lung bases are clear. Mild linear fibrosis or atelectasis. Mild blebs. Mild coronary artery calcification. Small hypodense lesion of the lateral right liver is stable as is a small lesion at the inferior right lobe of liver. Spleen is not enlarged. Pancreas is unremarkable. No evidence of adrenal mass. Fatty lesion of the right kidney compatible with angiomyolipoma is stable. Low-density lesion of the more superior left kidney measures cystic density compatible with cysts, appears similar to the prior study. Kidneys demonstrate symmetric enhancement. No evidence of hydronephrosis. No calcified gallstone. Aorta is nonaneurysmal, demonstrates atherosclerotic calcification. Small inguinal lymph nodes are identified slightly larger than on prior study. For instance, left inguinal lymph node measures 8 mm short axis, compared with 6 mm short axis previously. No significant retroperitoneal or mesenteric lymph node enlargement. No significant small bowel distention. Colonic diverticulosis. No evidence of acute colitis. The appendix is normal. There is mild density within the appendiceal lumen may represent oral contrast from a prior radiology procedure. No evidence of ascites or pneumoperitoneum. No pelvic mass is visualized. There is diffuse irregular urinary bladder wall thickening. Vertebral body height and alignment are intact. IMPRESSION: 1. Diffuse irregular urinary bladder wall thickening. Note that wall thickening was also seen on prior exam, but appears greater today. Correlate for cystitis. Although less likely due to its diffuse nature, neoplasm of the urinary bladder wall is not possible to exclude. 2. Stable renal and hepatic lesions since prior exam. 3. Mild nonspecific prominence of inguinal lymph nodes, may be reactive. Electronically signed by: Tom Reid MD (12/05/2018 4:35 PM) [facility] DICTATED AND SIGNED BY: TOM REID MD DATE: 12/05/18 8781 CC: OFELIA SALCEDO DO; SCOTT WANG ~ (JACOBY GALEANA MD) Course & Med Decision Making Course & Med Decision Making Pertinent Labs and Imaging studies reviewed. (See chart for details) ED course: Patient arrived, was placed in bed, and tolerated exam well. She was transferred to and from radiology with any complications. She had resolution of pain with the ketorolac. After the return of lab and imaging studies, these were discussed patient voiced understanding.[] (OFELIA SALCEDO DO) Course & Med Decision Making Shift change pt. reports increased pain and nausea. Patient continues to have periodic bouts of severe abdomen pain some what characteristic of passing a renal stones. Patient will be admitted for pain control to Dr. Oneal. Will cover for infection- with findings of pelvic adenopathy. Admit to Dr. Oneal. Impression: 1.renal colic pain control 2. cystitis 3. dehydration 4. hematuria 5. cervicitis 6 .abdomen pain [address] Oneal primary. (JACOBY GALEANA MD) Dragon Disclaimer Dragon Disclaimer This electronic medical record was generated, in whole or in part, using a voice recognition dictation system. (OFELIA SALCEDO DO) Departure Departure: Referrals: SCOTT WANG (PCP) Discharge Summary Visit Information Final Diagnosis Problems Medical Problems: (1) Pain in the abdomen Status: Acute (JACOBY GALEANA MD) Brief Hospital Course Allergies Allergies Coded Allergies Type Severity Reaction Last Updated Verified No Known Drug Allergies 11/04/16 No Vital Signs Vital Signs Date Time Temp Pulse Resp B/P (MAP) Pulse Ox O2 Delivery O2 Flow Rate FiO2 12/06/18 05:20 98.2 50 20 118/74 (89) 95 Nasal Cannula 2.0 Lab Results Laboratory Tests Test 12/05/18 15:55 12/05/18 17:28 White Blood Count 10.8 x10^3/uL (4.0-11.0) Red Blood Count 4.92 x10^6/uL (3.50-5.40) Hemoglobin 14.3 g/dL (12.0-15.5) Hematocrit 42.8 % (36.0-47.0) Mean Corpuscular Volume 87 fL (79-100) Mean Corpuscular Hemoglobin 29 pg (25-35) Mean Corpuscular Hemoglobin Concent 34 g/dL (31-37) Red Cell Distribution Width 14.2 % (11.5-14.5) Platelet Count 311 x10^3/uL (140-400) Neutrophils (%) (Auto) 66 % (31-73) Lymphocytes (%) (Auto) 25 % (24-48) Monocytes (%) (Auto) 7 % (0-9) Eosinophils (%) (Auto) 2 % (0-3) Basophils (%) (Auto) 1 % (0-3) Neutrophils # (Auto) 7.1 x10^3uL (1.8-7.7) Lymphocytes # (Auto) 2.7 x10^3/uL (1.0-4.8) Monocytes # (Auto) 0.7 x10^3/uL (0.0-1.1) Eosinophils # (Auto) 0.2 x10^3/uL (0.0-0.7) Basophils # (Auto) 0.1 x10^3/uL (0.0-0.2) Prothrombin Time 9.9 SEC (9.4-11.4) Prothromb Time International Ratio 1.0 (0.9-1.1) Sodium Level 141 mmol/L (136-145) Potassium Level 3.8 mmol/L (3.5-5.1) Chloride Level 103 mmol/L (98-107) Carbon Dioxide Level 28 mmol/L (21-32) Anion Gap 10 (6-14) Blood Urea Nitrogen 18 mg/dL (7-20) Creatinine 1.2 mg/dL (0.6-1.0) Estimated GFR (Cockcroft-Gault) 45.8 BUN/Creatinine Ratio 15 (6-20) Glucose Level 89 mg/dL (70-99) Calcium Level 9.3 mg/dL (8.5-10.1) Total Bilirubin 0.5 mg/dL (0.2-1.0) Aspartate Amino Transf (AST/SGOT) 16 U/L (15-37) Alanine Aminotransferase (ALT/SGPT) 11 U/L (14-59) Alkaline Phosphatase 68 U/L (46-116) Troponin I Quantitative < 0.017 ng/mL (0-0.055) Total Protein 7.7 g/dL (6.4-8.2) Albumin 3.5 g/dL (3.4-5.0) Albumin/Globulin Ratio 0.8 (1.0-1.7) Lipase 79 U/L (73-393) Urine Collection Type Unknown Urine Color Yellow Urine Clarity Hazy Urine pH 5.0 Urine Specific [place] 1.010 Urine Protein Neg (NEG-TRACE) Urine Glucose (UA) Neg mg/dL (NEG) Urine Ketones (Stick) Neg mg/dL (NEG) Urine Blood Small (NEG) Urine Nitrite Neg (NEG) Urine Bilirubin Neg (NEG) Urine Urobilinogen Dipstick 0.2 mg/dL (0.2 mg/dL) Urine Leukocyte Esterase Neg (NEG) Urine RBC 0 /HPF (0-2) Urine WBC 0 /HPF (0-4) Urine Squamous Epithelial Cells Occ /LPF Urine Bacteria Few /HPF (0-FEW) Urine Mucus Slight /LPF Brief Hospital Course Ms. Gutierrez is a 58 old female who presented with hx abd.pain. Admitted Dr. Oneal (JACOBY GALEANA MD) Discharge Information Condition at Discharge: Improved Dischare Medications Current Medications Ketorolac Tromethamine (Toradol 30mg Vial) 30 mg 1X ONCE IV Last administered on 12/05/18at 16:00; Start 12/05/18 at 16:00; Stop 12/05/18 at 16:01; Status DC Active Scripts Active Reported Erythromycin (Erythromycin Base) 250 Mg Tablet 500 Mg PO BID LAST DOSE GIVEN: DATE:TODAY TIME:MORNING NEXT DOSE DUE: DATE:TODAY TIME:EVENING Dexilant (Dexlansoprazole) 60 Mg mp 30 Mg PO DAILY LAST DOSE GIVEN: DATE:TODAY TIME:MORNING NEXT DOSE DUE: DATE:TOMORROW TIME:MORNING (JACOBY GALEANA MD) Dragon Disclaimer This chart was dictated in whole or in part using Voice Recognition software in a busy, high-work load, and often noisy Emergency Department environment. It may contain unintended and wholly unrecognized errors or omissions. (JACOBY GALEANA MD) OFELIA SALCEDO DO Dec 05, 2018 15:48 JACOBY GALEANA MD Dec 05, 2018 19:30
[2018-12-05] MEDS ORDERED: KETOROLAC 30 MG/ML VIAL. IV ONE (16:00)
[2018-12-05 16:09] LABS: BASO # 0.1 x10^3/uL (0.0-0.2); BASO % 1 % (0-3); EOS # 0.2 x10^3/uL (0.0-0.7); EOS % 2 % (0-3); HEMATOCRIT 42.8 % (36.0-47.0); HEMOGLOBIN 14.3 g/dL (12.0-15.5); LYMPH # 2.7 x10^3/uL (1.0-4.8); LYMPH % 25 % (24-48); MEAN CORPUSCULAR HEMOGLOBIN 29 pg (25-35); MEAN CORPUSCULAR HGB CONC 34 g/dL (31-37); MEAN CORPUSCULAR VOLUME 87 fL (79-100); MONO # 0.7 x10^3/uL (0.0-1.1); MONO % 7 % (0-9); NEUT # 7.1 x10^3uL (1.8-7.7); NEUT % 66 % (31-73); PLATELET COUNT 311 x10^3/uL (140-400); RED BLOOD COUNT 4.92 x10^6/uL (3.50-5.40); RED CELL DISTRIBUTION WIDTH 14.2 % (11.5-14.5); WHITE BLOOD COUNT 10.8 x10^3/uL (4.0-11.0)
--- NOTE | 2018-12-05 16:26 | RAD ---
PORTABLE CHEST 1V History: Left upper abdominal pain and left lower chest pain, nausea and vomiting Comparison: February 14, 2018 Findings: Single view of the chest is submitted. There is again some linear likely fibrotic change left lung base. There is no lobar consolidation, pleural fluid, pneumothorax. Heart size is stable, within normal limits. There is atherosclerotic calcification near aortic arch. Impression: 1. No acute radiographic abnormality is identified. Electronically signed by: Lalo Lennon MD (12/05/2018 4:23 PM) [place] [id number]
[2018-12-05 16:31] LABS: ALBUMIN 3.5 g/dL (3.4-5.0); ALBUMIN/GLOBULIN RATIO 0.8 (1.0-1.7); CALCIUM 9.3 mg/dL (8.5-10.1); CREATININE 1.2 mg/dL (0.6-1.0); GFR 45.8; POTASSIUM 3.8 mmol/L (3.5-5.1); TOTAL BILIRUBIN 0.5 mg/dL (0.2-1.0); TOTAL PROTEIN 7.7 g/dL (6.4-8.2)
--- NOTE | 2018-12-05 16:38 | RAD ---
CT ABDOMEN PELVIS WO CONTRAST Indication: Upper abdominal pain, nausea, vomiting. Exposure: One or more of the following individualized dose reduction techniques were utilized for this examination: 1. Automated exposure control 2. Adjustment of the mA and/or kV according to patient size 3. Use of iterative reconstruction technique. Comparison: Images are available from November 11, 2016 but the report from that exam is not available. Technique: No intravenous contrast given. No oral contrast per request. Findings: Evaluation of solid viscera, bowel and vasculature is compromised by the noncontrast technique. Lung bases are clear. Mild linear fibrosis or atelectasis. Mild blebs. Mild coronary artery calcification. Small hypodense lesion of the lateral right liver is stable as is a small lesion at the inferior right lobe of liver. Spleen is not enlarged. Pancreas is unremarkable. No evidence of adrenal mass. Fatty lesion of the right kidney compatible with angiomyolipoma is stable. Low-density lesion of the more superior left kidney measures cystic density compatible with cysts, appears similar to the prior study. Kidneys demonstrate symmetric enhancement. No evidence of hydronephrosis. No calcified gallstone. Aorta is nonaneurysmal, demonstrates atherosclerotic calcification. Small inguinal lymph nodes are identified slightly larger than on prior study. For instance, left inguinal lymph node measures 8 mm short axis, compared with 6 mm short axis previously. No significant retroperitoneal or mesenteric lymph node enlargement. No significant small bowel distention. Colonic diverticulosis. No evidence of acute colitis. The appendix is normal. There is mild density within the appendiceal lumen may represent oral contrast from a prior radiology procedure. No evidence of ascites or pneumoperitoneum. No pelvic mass is visualized. There is diffuse irregular urinary bladder wall thickening. Vertebral body height and alignment are intact. IMPRESSION: 1. Diffuse irregular urinary bladder wall thickening. Note that wall thickening was also seen on prior exam, but appears greater today. Correlate for cystitis. Although less likely due to its diffuse nature, neoplasm of the urinary bladder wall is not possible to exclude. 2. Stable renal and hepatic lesions since prior exam. 3. Mild nonspecific prominence of inguinal lymph nodes, may be reactive. Electronically signed by: Tom Reid MD (12/05/2018 4:35 PM) [facility] [place]
[2018-12-05 18:16] LABS: BACTERIA,URINE FEW /HPF (0-FEW); BILIRUBIN,URINE NEG (NEG); CLARITY,URINE HAZY; COLOR,URINE YELLOW; GLUCOSE,URINE NEG (NEG); NITRITE,URINE NEG (NEG); RBC,URINE 0 /HPF (0-2); SQUAMOUS EPITHELIAL CELL,UR OCC /LPF; UROBILINOGEN,URINE 0.2 mg/dL (0.2 mg/dL); WBC,URINE 0 /HPF (0-4)
[2018-12-05] MEDS ORDERED: ACETAMINOPHEN 325 MG TABLET PO PRN (19:30)
[2018-12-05] MEDS ORDERED: AZITHROMYCIN 500 MG in IV NORMAL SALINE 250ML 250 ML IV ONE (19:30)
[2018-12-05] MEDS ORDERED: ONDANSETRON PF 4 MG/2 ML VIAL. IV PRN (19:30)
[2018-12-05] MEDS ORDERED: IV NORMAL SALINE 50ML 50 ML ONE (19:48)
[2018-12-05] MEDS ORDERED: cefTRIAXone SODIUM 1 GM VIAL ONE (19:48)
[2018-12-05] MEDS ORDERED: IV NORMAL SALINE 250ML 250 ML ONE (19:48)
[2018-12-05] MEDS ORDERED: AZITHROMYCIN 500 MG VIAL. IV ONE (19:48)
[2018-12-05] MEDS: IV RINGERS SOLUTION,LACTATED 1,000 ML IV SCH (20:01)
[2018-12-05 23:30] VITALS: BP 120/67
[2018-12-06] MEDS ORDERED: OXYB5TAB33 PO (00:36)
[2018-12-06] MEDS ORDERED: AMLO1TAB95 PO (00:36)
[2018-12-06] MEDS ORDERED: DIPH50CA25 PO (00:36)
[2018-12-06] MEDS ORDERED: DEXL60CA2 PO (00:36)
[2018-12-06 05:20] VITALS: BP 118/74
[2018-12-06] MEDS: IV RINGERS SOLUTION,LACTATED 1,000 ML IV SCH ×2 (05:28→08:00)
[2018-12-06 07:14] LABS: BASO # 0.1 x10^3/uL (0.0-0.2); BASO % 1 % (0-3); EOS # 0.4 x10^3/uL (0.0-0.7); EOS % 5 % (0-3); HEMATOCRIT 42.4 % (36.0-47.0); LYMPH # 2.6 x10^3/uL (1.0-4.8); LYMPH % 32 % (24-48); MEAN CORPUSCULAR HEMOGLOBIN 29 pg (25-35); MEAN CORPUSCULAR HGB CONC 33 g/dL (31-37); MEAN CORPUSCULAR VOLUME 87 fL (79-100); MONO # 0.6 x10^3/uL (0.0-1.1); MONO % 7 % (0-9); NEUT # 4.5 x10^3uL (1.8-7.7); NEUT % 55 % (31-73); PLATELET COUNT 296 x10^3/uL (140-400); RED BLOOD COUNT 4.85 x10^6/uL (3.50-5.40); RED CELL DISTRIBUTION WIDTH 14.6 % (11.5-14.5); WHITE BLOOD COUNT 8.2 x10^3/uL (4.0-11.0)
[2018-12-06 07:32] LABS: CALCIUM 8.5 mg/dL (8.5-10.1); CREATININE 0.9 mg/dL (0.6-1.0); GFR 63.9; POTASSIUM 3.9 mmol/L (3.5-5.1)
--- NOTE | 2018-12-06 07:48 | EKG ---
[address] [address] Test Date: 2018-12-05 Test Time: 16:02:37 Pat Name: KELIN GUTIERREZ Department: Room: Gender: F Hat Block Bench Hand: HAY : 1960 Requested By: OFELIA SALCEDO Order Number: [id number] Reading MD: Measurements Intervals [place] Rate: 54 P: 45 [place]: 168 QRS: 17 QRSD: 80 T: 0 QT: 474 QTc: 451 Interpretive Statements SINUS RHYTHM NO SPECIFIC ECG ABNORMALITIES RI6.01 No previous ECG available for comparison
[2018-12-06] MEDS ORDERED: LACTOBACILLUS RHAMNOSUS GG 1 CAPSULE. PO SCH (09:00)
[2018-12-06] MEDS ORDERED: IV NORMAL SALINE 1,000ML 1,000 ML IV SCH (11:45)
[2018-12-06 12:09] VITALS: BP 101/58
[2018-12-06 12:09] LABS: BARBITURATES NEG (NEG); BENZODIAZEPINES NEG (NEG); CANNABINOIDS POS (NEG); COCAINE NEG (NEG); METHADONE NEG (NEG); OPIATES NEG (NEG); PHENCYCLIDINE NEG (NEG)
[2018-12-06 12:10] LABS: AMPHETAMINE/METHAMPHETAMINE NEG (NEG)
--- NOTE | 2018-12-06 18:38 | SSS ---
ADMIT DATE: HISTORY OF PRESENT ILLNESS: The patient is a 58-year-old female patient who apparently came to the Emergency Room yesterday, complaining of left upper abdominal pain that started several hours prior to arrival to the Emergency Room, which was about 5/10 in severity. By the time she arrived to the Emergency Room, she was 1/10. She has not taken any medication. No nausea, no vomiting, no radiation of pain. She was uncomfortable, but unable to describe as far as sharp, dull, achy, burning, or crampy. No home therapy has been taken. No previous history of similar discomfort. No worsening with exertion. The patient was extensively investigated, has had a chest x-ray, which showed basically that she has no acute radiographic abnormality identified. Her CT scan of the abdomen and pelvis showed that there is diffuse irregular urinary bladder wall thickening. Note that wall thickening was also seen on prior exam, but appears greater today, correlates with cystitis, although less likely due to diffuse nature. Neoplasm of the urinary bladder wall is not possible to exclude. She has stable renal and hepatic lesion seen on prior exams. She has mild nonspecific prominence of the inguinal lymph nodes, may be reactive. Her lab work showed a white cell count of 10,000. Her chemistry showed that she was slightly dehydrated with creatinine slightly elevated at 1.2. Urinalysis was essentially unremarkable. Toxic screen was positive for cannabinoids. The patient was started on IV fluid, as well as IV antibiotic and was admitted for further evaluation and treatment. PAST MEDICAL HISTORY: Significant for hypertension, hyperlipidemia, hepatitis C treated about 4 years ago. She has gastroparesis, overactive bladder, osteoarthritis, as well as iritis. PAST SURGICAL HISTORY: Significant for , esophagogastroduodenoscopy, and colonoscopy. ALLERGIES: She has no known drug allergies. MEDICATIONS: She is currently on following medications: She is on diphenhydramine 50 mg at bedtime, erythromycin base 500 mg twice a day, amlodipine/olmesartan for Kristyn 10/40 mg once a day. She is on Dexilant 30 mg daily and oxybutynin chloride 5 mg daily. FAMILY HISTORY: She has 2 brothers and 1 sister, younger and healthy. Her father at the age of 60 because of lung cancer. Mother at the age of 59 because of congestive heart failure. SOCIAL HISTORY: She is , has 2 sons and 2 daughters. She smokes a pack a day, drinks alcohol very occasionally. Does not use any drugs; although, her toxic screen was positive for marijuana. REVIEW OF SYSTEMS: The patient denied any blurring of vision, cataract, glaucoma or macular degeneration. Denied any earache, tinnitus or sensorineural deafness. Denied any nosebleeds, stuffy nose or postnasal drip. Denied any sore throat, sore tongue, toothache, hoarseness of voice or difficulty swallowing. Denied any nausea, vomiting, diarrhea or constipation. Denied any hematemesis, melena or hematochezia. Denied any dysuria, frequency or hematuria. Denied any chest pain, shortness of breath, orthopnea or paroxysmal nocturnal dyspnea. Denied any cough, phlegm or hemoptysis. Denied any dizziness, lightheadedness, or vertigo. PHYSICAL EXAMINATION: GENERAL: On arrival to the Emergency Room, she looked well and was clearly in no apparent respiratory distress. VITAL SIGNS: Her heart rate was 56, blood pressure 120/67, temperature was 98, respiratory rate was 18 and oxygen saturation was 94%. HEAD, EYES, EARS, NOSE AND THROAT: Normocephalic, atraumatic. NECK: Supple. HEART: Normal first and second heart sounds. No gallop, rub or murmur. CHEST: Clear to auscultation. No crepitation or rhonchi. ABDOMEN: Distended, soft, nontender. She has some left upper quadrant tenderness to palpation just inferior to her left rib. No rebound. No guarding or rigidity. No pulsatile masses. Bowel sounds are normal. NEUROLOGIC: She was awake, alert, responding appropriately. All her cranial nerves are intact. She moves extremities without difficulty. She ambulates without assistance or assistive devices. LABORATORY DATA: Her lab work showed that her white cell count was 10,800, hemoglobin 14, hematocrit 42, MCV 87 and platelet count 311,000. Her chemistry showed a serum sodium 141, potassium 3.8, chloride 103, bicarbonate 28, anion gap of 10, BUN 18, creatinine 1.2, estimated GFR was 46 mL per minute. Her glucose was 89, calcium was 9.3. Total bilirubin, AST, ALT, alkaline phosphatase were normal. Total protein was 7.7, albumin 3.5. Lipase was 79. Her prothrombin time was 9.9, INR of 1. Urinalysis showed the urine was yellow, hazy with a pH of 5, specific gravity of 1.010. The urine was negative for protein, glucose, ketones. There was small amount of blood. Negative for nitrite or leukocyte esterase. There are no rbc's, no wbc's, and very few bacteria. Her toxic screen was positive for cannabinoids, negative for opiates, methadone, barbiturates, phencyclidine, amphetamine, methamphetamine, benzodiazepine, cocaine and alcohol. Her chest x-ray showed that there are again some linear likely fibrotic changes in the left lung base. There is no lobar consolidation, no pleural fluid or pneumothorax. Heart size is stable, within normal limits. There is atherosclerotic calcification near the aortic arch. CT scan of the abdomen and pelvis showed basically diffuse irregular urinary bladder wall thickening. Note that wall thickening was also seen in prior exams, but appears greater today, correlate for cystitis. She has stable renal hepatic lesion since prior exam, mild nonspecific are prominent inguinal lymph node. She has fatty lesion in the right kidney compatible with angiomyolipoma stable low density lesion of the more superior left kidney, measures cystic density compatible with cyst, appears similar to the prior study. Kidneys demonstrate symmetric enhancement. No evidence of hydronephrosis. The patient was admitted, continued on IV fluid and pain medication and antiemetic. She remained stable. She has had no more abdominal pain. She has nausea, no vomiting, no diarrhea or constipation. She remained stable. When I saw her this afternoon, she was sitting up, eating her dinner, in no apparent distress. On examining her, she looked well and showed no pallor, jaundice, cyanosis or thyromegaly. No jugular venous distention. No lymphedema. Her heart rate was 55, blood pressure was 101/58, temperature was 97.4, respiratory rate was 15 and oxygen saturation was 94% and the rest of clinical exam is stable. Her lab work prior to discharge showed a white cell count of 8,200, hemoglobin 14, hematocrit 42, MCV 87, and platelet count of 296,000. Her chemistry showed a serum sodium 141, potassium 3.9, chloride 107, bicarbonate 26, anion gap of 8, BUN 17, creatinine 0.9, estimated GFR was 64 mL per minute. Her glucose was 99, calcium was 8.5. She was discharged home to continue on amlodipine/olmesartan 1 tablet once a day, Dexilant 30 mg once a day, diphenhydramine 50 mg at bedtime, erythromycin base 500 mg twice a day and oxybutynin chloride for Ditropan XL 5 mg daily. FINAL DISCHARGE DIAGNOSES: 1. Left renal colic, resolved. 2. She has chronic cystitis. 3. Hypertension. 4. Hyperlipidemia. 5. Gastroparesis. 6. Overactive bladder and history of hepatitis C that was treated. 7. Generalized osteoarthritis. ASSESSMENT AND PLAN: The patient was advised to make an appointment with the urologist to make sure that there is no abnormality in her bladder given that she is a smoker and was discharged to continue her other medications. Follow up with her primary care physician. PAULINA ZAVALA MD DR: ABBE/fallon JOB#: [id number] / [id number]
== END 2018-12-06 18:20 | disposition home or self-care (01) ==
LOC: ER 14:44 → ICU 19:00 → INTOOBSV 19:00
PROVIDERS: ADMIT Internal Medicine; ATTEND Internal Medicine
DX: N23 Unspecified renal colic (principal); I10 Essential (primary) hypertension; F17.210 Nicotine dependence, cigarettes, uncomplicated; R11.2 Nausea with vomiting, unspecified; E86.0 Dehydration; N72 Inflammatory disease of cervix uteri; R59.0 Localized enlarged lymph nodes; N30.21 Other chronic cystitis with hematuria; N30.20 Other chronic cystitis without hematuria; E78.5 Hyperlipidemia, unspecified; K31.84 Gastroparesis; N32.81 Overactive bladder; Z86.19 Personal history of other infectious and parasitic diseases; M15.9 Polyosteoarthritis, unspecified; Z82.49 Family history of ischemic heart disease and other diseases of the circulatory system; Z87.442 Personal history of urinary calculi; Z80.1 Family history of malignant neoplasm of trachea, bronchus and lung
CPT/HCPCS: 36415; 71045; 74176; 80048; 80053; 80307; 81001; 83690; 84484; 85025; 85610; 87641; 93005; 96361; 96365; 96366; 96367; 96368; 96375; 99284; G0378; J0456; J0696; J1885; J3490; J7050; J7120; G0379; 99285-25; J7030

== ENCOUNTER → 2019-02-12 | Outpatient (CLI) | payer OTHER ==
[~2019-02-12] MED LIST changes: +AMLO1TAB95 PO; +DIPH50CA25 PO; +OXYB5TAB33 PO
--- NOTE | 2019-02-12 14:34 | RAD ---
EXAM: Lumbar spine, 3 views. HISTORY: Pain. COMPARISON: None. FINDINGS: 3 views of the lumbar spine are obtained. There is no significant listhesis. The vertebral bodies are normal in height. There is mild endplate remodeling at multiple levels. There is facet arthropathy predominantly the lower lumbar levels. IMPRESSION: 1. Mild multilevel degenerative change. 2. No acute osseous finding. Electronically signed by: Marge Rodriguez MD (02/12/2019 2:31 PM) [facility]
--- NOTE | 2019-02-12 15:11 | RAD ---
EXAM: Bilateral hands, 3 views. HISTORY: Polyarthralgia. COMPARISON: None. FINDINGS: 3 views of both hands are obtained. There is no acute fracture, dislocation or subluxation. There is a suspected small sclerotic ossicle adjacent to the left ulnar styloid, likely due to the sequela of remote injury. IMPRESSION: No acute osseous finding. Electronically signed by: Marge Rodriguez MD (02/12/2019 3:08 PM) [facility]
== END | disposition home or self-care (01) ==
LOC: DXRAD 13:45
PROVIDERS: ATTEND Internal Medicine Rheumatology
DX: M47.816 Spondylosis without myelopathy or radiculopathy, lumbar region (principal); M12.88 Other specific arthropathies, not elsewhere classified, other specified site
CPT/HCPCS: 72100; 73130

== ENCOUNTER → 2019-03-04 | Outpatient (CLI) | payer OTHER ==
--- NOTE | 2019-03-05 09:42 | RAD ---
PA and lateral chest x-ray without comparison for chest tightness. FINDINGS: There is a linear band of atelectasis in the left lower lung. No definite pneumonic infiltrate. Pleural vasculature is normal. Heart size within normal limits. No significant osseous abnormalities. IMPRESSION: 1. Subsegmental atelectasis in the left lung with no definite pneumonic infiltrate. Electronically signed by: Jani Puentes MD (03/05/2019 9:40 AM) [facility]
== END | disposition home or self-care (01) ==
LOC: RAD 17:48
PROVIDERS: ATTEND Registered Nurse
DX: J98.11 Atelectasis (principal)
CPT/HCPCS: 71046

== ENCOUNTER → 2020-02-17 | Outpatient (CLI) | payer OTHER ==
--- NOTE | 2020-02-18 16:10 | RAD ---
DATE: 02/17/2020 3:00 PM EXAM: DIGITAL SCREEN BILAT W/CAD HISTORY: Screening COMPARISON: 12/20/2017, 06/08/2016 Bilateral CC and MLO views of the breasts were performed. Bilateral breast tomosynthesis was performed in CC and MLO projections. This study was interpreted with the benefit of Computerized Aided Detection (CAD). FINDINGS: Breast Density: SCATTERED The breast parenchyma shows scattered fibroglandular densities. Breast parenchyma level B No suspicious masses, microcalcifications or architectural distortion is present to suggest malignancy in either breast. The visualized axillae are unremarkable. IMPRESSION: No mammographic evidence of malignancy. BI-RADS CATEGORY: 1 NEGATIVE RECOMMENDED FOLLOW-UP: 12M 12 MONTH FOLLOW-UP Annual screening mammography is recommended, unless clinically indicated sooner based on symptoms or change in physical exam. PQRS compliance statement: Patient information was entered into a reminder system with a target due date for the next mammogram. Mammography is a sensitive method for finding small breast cancers, but it does not detect them all and is not a substitute for careful clinical examination. A negative mammogram does not negate a clinically suspicious finding and should not result in delay in biopsying a clinically suspicious abnormality. "Our facility is accredited by the [employer] Mammography Program."
== END ==
LOC: MAMMO 14:52
PROVIDERS: ATTEND Physician Assistant
DX: Z12.31 Encounter for screening mammogram for malignant neoplasm of breast (principal)
CPT/HCPCS: 77067

== ENCOUNTER 2020-12-17 11:56 | Emergency (ER) | payer OTHER ==
[~2020-12-17] VITALS: Ht 157.5 cm; Wt 79.0 kg
[~2020-12-17 11:56] MED LIST changes: +MIRA25TA PO; -MIRA50TA PO
[2020-12-17] MEDS ORDERED: KETOROLAC 15 MG/ML VIAL. IM ONE (12:15)
[2020-12-17] MEDS ORDERED: CYCLOBENZAPRINE 10 MG TABLET. PO ONE (12:15)
--- NOTE | 2020-12-17 12:28 | PHYS DOC ---
Past History Past Medical History: Arthritis, GERD, Hypertension, UTI Additional Past Medical Histor: gastroparesis, urgency (GANESH STANTON APRN) Past Surgical History: , Tubal ligation (GANESH STANTON APRN) Smoking: Cigarettes Alcohol Use: None Drug Use: None (GANESH STANTON APRN) General Adult EDM: Chief Complaint: RIB PAIN HPI: HPI: Patient is a 60-year-old female who presents with left side pain. Patient reports that she only has pain with bending over or moving. Pain is improved with sitting or standing. Patient reports pain as a cramp-like feeling, 5/10. Patient denies taking anything for discomfort before arrival. Denies chest pain, shortness of breath, dizziness, nausea/vomiting. Patient states "I have had a sinus infection and had a cough recently" patient is a history of hypertension, overactive bladder, smoker. (GANESH STANTON APRN) Review of Systems: Review of Systems: Constitutional: Denies fever or chills Eyes: Denies change in visual acuity HENT: Denies nasal congestion or sore throat Respiratory: Denies cough or shortness of breath Cardiovascular: Denies chest pain or edema GI: Denies abdominal pain, nausea, vomiting, bloody stools or diarrhea : Denies dysuria Musculoskeletal: Reports left side pain Integument: Denies rash Neurologic: Denies headache, focal weakness or sensory changes Endocrine: Denies polyuria or polydipsia Lymphatic: Denies swollen glands Psychiatric: Denies depression or anxiety (GANESH STANTON APRN) Current Medications: Current Meds: Current Medications Medications (Trade) Dose Ordered Sig/Sheyla Start Time Stop Time Status Last Admin Dose Admin Cyclobenzaprine HCl (Flexeril) 10 mg 1X ONCE 12/17/20 12:15 12/17/20 12:16 UNV Ketorolac Tromethamine (Toradol 15mg Vial) 15 mg 1X ONCE 12/17/20 12:15 12/17/20 12:16 UNV (GANESH STANTON APRN) Allergies: Allergies: Allergies Coded Allergies Type Severity Reaction Last Updated Verified No Known Drug Allergies 12/17/20 No (GANESH STANTON APRN) Physical Exam: PE: Constitutional: Well developed, well nourished, no acute distress, non-toxic appearance. [] HENT: Normocephalic, atraumatic, bilateral external ears normal, oropharynx moist, no oral exudates, nose normal. [] Eyes: PERRLA, EOMI, conjunctiva normal, no discharge. [] Neck: Normal range of motion, no tenderness, supple, no stridor. [] Cardiovascular:Heart rate regular rhythm, no murmur [] Lungs & Thorax: Bilateral breath sounds clear to auscultation [] Abdomen: Bowel sounds normal, soft, no tenderness, no masses, no pulsatile masses. [] Skin: Warm, dry, no erythema, no rash. [] Back: No tenderness, no CVA tenderness. [] Extremities: No tenderness, no cyanosis, no clubbing, ROM intact, no edema. [] Neurologic: Alert and oriented X 3, normal motor function, normal sensory function, no focal deficits noted. [] Psychologic: Affect normal, judgement normal, mood normal. [] (GANESH STANTON APRN) Current Patient Data: Vital Signs: Vital Signs Date Time Temp Pulse Resp B/P (MAP) Pulse Ox O2 Delivery O2 Flow Rate FiO2 12/17/20 12:05 98.4 82 20 142/77 (98) 96 (GANESH STANTON APRN) EKG: EKG: [] Sinus rhythm. Intervals normal. [place] normal. Heart rate 55 bpm (GANESH STANTON APRN) Radiology/Procedures: Radiology/Procedures: []EXAMINATION: Chest radiograph. VIEWS: Single view COMPARISON: 03/04/2019 INDICATION:60 years, Female, left-sided chest pain. FINDINGS: Normal cardiomediastinal silhouette. No focal consolidation. No pleural effusion or pneumothorax. No acute osseous process. IMPRESSION: No acute cardiopulmonary process. Electronically signed by: Gonzalo Grajeda MD (12/17/2020 12:57 PM) [facility] (GANESH STANTON APRN) Heart Score: C/O Chest Pain: No Risk Factors: Risk Factors: DM, Current or recent (<one month) smoker, HTN, HLP, family history of CAD, obesity. Risk Scores: Score 0 - 3: 2.5% MACE over next 6 weeks - Discharge Home Score 4 - 6: 20.3% MACE over next 6 weeks - Admit for Clinical Observation Score 7 - 10: 72.7% MACE over next 6 weeks - Early Invasive Strategies (GANESH STANTON APRN) Course & Med Decision Making: Course & Med Decision Making Pertinent Labs and Imaging studies reviewed. (See chart for details) [] 60-year-old female presents with left side pain is aggravated by bending over. Patient is able to reproduce the pain with movement. Pain is improved by sitting or standing. Denies chest pain, shortness of breath. Patient given Toradol and Flexeril. Chest x-ray was negative for fracture. Patient reporting mild improvement of pain. Patient is able to still reproduce when standing. Sending patient home with a prescription for Flexeril, hydrocodone. Patient is going to call her doctor in the morning to make a follow-up appointment. Patient directed to still take ibuprofen [id number] for discomfort. Patient is appreciative and okay with discharge plan. (GANESH STANTON APRN) Course & Med Decision Making I oversaw on the above date of service of this patient. This patient was evaluated, examined, treated, and dispositioned from the emergency department by the mid-level practitioner. I reviewed case with the [employer] and reviewed ER chart and after reported findings of superficial reproducible pain, I did not see or immediately direct the care of this patient. I reviewed note and agree to findings, plan of care, and disposition as stated. Electronically signed, To Calvert DO (TO CALVERT DO) Tricia Disclaimer: Tricia Disclaimer: This electronic medical record was generated, in whole or in part, using a voice recognition dictation system. (GANESH STANTON APRN) Departure Departure: Impression: Primary Impression: Rib pain on left side Disposition: 01 HOME / SELF CARE / HOMELESS Condition: STABLE Referrals: SCOTT WANG (PCP) Patient Instructions: Rib Contusion Additional Instructions: You were seen in the emergency room for left sided muscle pain. X-ray of your ribs were negative for fracture. I am sending home with prescription for Flexeril and also hydrocodone. Please continue taking ibuprofen [id number] to help with discomfort. Please call your PCP to make an appointment for tomorrow for follow-up. If you have worsening symptoms or concerns return to the emergency room EMERGENCY DEPARTMENT GENERAL DISCHARGE INSTRUCTIONS Thank you for coming to [facility] (ED) today and trusting us with you care. We trust that you had a positivie experience in our Emergency Department. If you wish to speak to the department management, you may call the director at [phone]. YOUR FOLLOW UP INSTRUCTIONS ARE FOLLOWS: 1. Do you have a private Doctor? If you do not have a private doctor, please ask for a resource list of physicians or clinics that may be able to assist you with follow up care. 2. The Emergency Physician has interpreted your x-rays. The X-Ray specialist will also review them. If there is a change in the findings, you will be notified in 48 hours when at all possible. 3. A lab test or culture has been done, your results will be reviewed and you will be notified if you need a change in treatment. ADDITIONAL INSTRUCTIONS AND INFORMATION: 1. Your care today has been supervised by a physician who is specially trained in emergency care. Many problems require more than one evaluation for a complete diagnosis and treatment. We recommend that you schedule your follow up appointment as recommended to ensure complete treatment of you illness or injury. If you are unable to obtain follow up care and continue to have a problem, or if your condition worsens, we recommend that you return to the ED. 2. We are not able to safely determine your condition over the phone nor are we able to give sound medical advice over the phone. For these safety reasons, if you call for medical advice we will ask you to come to the ED for further evaluation. 3. If you have any questions regarding these discharge instructions please call the ED at [phone]. SAFETY INFORMATION: In the interest of safety, wellness, and injury prevention; we encourage you to wear your sealbelt, if you smoke; quite smoking, and we encourage family to use a protective helmet for bicycling and other sporting events that present an increased risk for head injury. IF YOUR SYMPTOMS WORSEN OR NEW SYMPTOMS DEVELOP, OR YOU HAVE CONCERNS ABOUT YOUR CONDITION; OR IF YOUR CONDITION WORSENS WHILE YOU ARE WAITING FOR YOUR FOLLOW UP DRAKE OINTMENT; EITHER CONTACT YOUR PRIMARY CARE DOCTOR, THE PHYSICIAN WHOSE NAME AND NUMBER YOU WERE GIVEN, OR RETURN TO THE ED IMMEDIATELY. Scripts Cyclobenzaprine Hcl (CYCLOBENZAPRINE HCL) 10 Mg Tablet 1 TAB PO TID for muscle pain for 7 Days, #21 TAB Prov: GANESH STANTON APRN 12/17/20 Hydrocodone Bit/Acetaminophen (HYDROCODONE-APAP 5-325 ) 1 Each Tablet 1 TAB PO PRN Q6HRS PRN for PAIN for 2 Days, #10 TAB 0 Refills Prov: GANESH STANTON APRN 12/17/20 GANESH STANTON APRN Dec 17, 2020 12:28 TO CALVERT DO Dec 18, 2020 06:04
--- NOTE | 2020-12-17 12:59 | RAD ---
EXAMINATION: Chest radiograph. VIEWS: Single view COMPARISON: 03/04/2019 INDICATION:60 years, Female, left-sided chest pain. FINDINGS: Normal cardiomediastinal silhouette. No focal consolidation. No pleural effusion or pneumothorax. No acute osseous process. IMPRESSION: No acute cardiopulmonary process. Electronically signed by: Gonzalo Grajeda MD (12/17/2020 12:57 PM) [facility]
[2020-12-17] MEDS ORDERED: HYDROcodone/APAP 5/325MG 1 TAB TABLET PO ONE (13:45)
[2020-12-17] MEDS ORDERED: CYCL-331 PO (13:56)
[2020-12-17] MEDS ORDERED: HYDR-2155 PO (13:56)
[2020-12-17 14:05] VITALS: BP 142/75
--- NOTE | 2020-12-18 22:10 | EKG ---
[address] [address] Test Date: 2020-12-17 Test Time: 12:43:01 Pat Name: KELIN GUTIERREZ Department: Room: Gender: F [employer] Applications Consultant: : [id number] Requested By: GANESH STANTON Order Number: [id number] Reading MD: Measurements Intervals [place] Rate: 55 P: -34 MO: 168 QRS: 2 QRSD: 78 T: -5 QT: 362 QTc: 348 Interpretive Statements SINUS RHYTHM NORMAL ECG RI6.02 No previous ECG available for comparison
== END 2020-12-17 14:11 | disposition home or self-care (01) ==
LOC: ER 11:56
DX: R07.81 Pleurodynia (principal); K21.9 Gastro-esophageal reflux disease without esophagitis; I10 Essential (primary) hypertension; F17.210 Nicotine dependence, cigarettes, uncomplicated; Z98.51 Tubal ligation status; Z87.440 Personal history of urinary (tract) infections
CPT/HCPCS: 71045; 93005; 96372; 99283; J1885

== ENCOUNTER → 2021-09-23 | Outpatient (CLI) | payer OTHER ==
[~2021-09-23] MED LIST changes: +CYCL10TA19 PO; -DIPH50CA25 PO; +DIPH50CA53 PO; +HYDR-2155 PO
--- NOTE | 2021-09-24 09:09 | RAD ---
EXAM: Bilateral carotid duplex with waveform analysis. CLINICAL HISTORY: SYNCOPE, HTN, DIZZINESS, HX OF SMOKING TECHNIQUE: Longitudinal and transverse sonographic images of the bilateral carotid arteries was perfo rmed utilizing grayscale, color and spectral Doppler techniques. COMPARISON: None FINDINGS: Right Carotid: Mild atherosclerosis of the right common carotid artery Left Carotid: No significant atherosclerosis Vertebrals: Antegrade flow bilaterally. Right: PSV CCA (cm/s): 133 PSV ICA (cm/s): 74 EDV ICA (cm/s): 22 PSV ECA (cm/s): 65 ICA/CCA Ratio: 0.5 Left: PSV CCA (cm/s): 93 PSV ICA (cm/s): 83 EDV ICA (cm/s): 30 PSV ECA (cm/s): 82 ICA/CCA Ratio: 0.8 IMPRESSION: No stenosis of the internal carotid arteries Consensus Panel Hong-scale and Doppler US Criteria for Diagnosis of ICA Stenosis Degree of Stenosis (%) ICA PSV (Cm/sec) Plaque Estimate (%)* Normal <125 None <50 <125 <50 50-69 125-230 >50 >70 but < near occlusion >230 >50 Near occlusion High, low, or undetectable Visible Total occlusion Undetectable Visible, no detectable lumen *Plaque estimate (diameter reduction) with hong-scale and color Doppler US Degree of Stenosis (%) ICA/CCA PSV Ratio ICA EDV (cm/sec) Normal <2.0 <40 <50 <2.0 <40 50-69 2.0-4.0 40-100 >70 but < near occlusion >4.0 >100 Near occlusion Variable Variable Total occlusion Not applicable Not applicable Electronically signed by: Lalo Aguilar MD (09/24/2021 9:07 AM) [id number]
== END ==
LOC: US 15:50
PROVIDERS: ATTEND Physician Assistant
DX: I65.21 Occlusion and stenosis of right carotid artery (principal); R01.1 Cardiac murmur, unspecified; I10 Essential (primary) hypertension; R55 Syncope and collapse
CPT/HCPCS: 93880

== ENCOUNTER → 2021-09-28 | Outpatient (CLI) | payer OTHER ==
--- NOTE | 2021-09-28 16:51 | CARD ---
MR#: [id number] Date of Study: 09/28/2021 Ordering Physician: SCOTT WANG, Referring Physician: SCOTT WANG, Tech: Kenton Reich [facility] APPROVED REPORT EXAM: Two-dimensional and M-mode echocardiogram with Doppler and color Doppler. Other Information Quality : AverageHR: 61bpm Rhythm : NSR INDICATION Hypertension/HCVD Syncope Murmur RISK FACTORS Hypertension Obesity Smoking 2D DIMENSIONS Left Atrium(2D)3.9 (1.6-4.0cm)IVSd0.9 (0.7-1.1cm) Aortic Root(2D)2.9 (2.0-3.7cm)LVDd5.0 (3.9-5.9cm) LVOT Diameter1.9 (1.8-2.4cm)PWd0.9 (0.7-1.1cm) LVDs2.4 (2.5-4.0cm)FS (%) 51.4 % SV97.5 mlLVEF(%)82.4 (>50%) Aortic Valve AoV Peak Jeremiah.195.2cm/sAoV VTI41.1cm AO Peak GR.15.2mmHgLVOT Peak Jeremiah.146.0cm/s LVOT VTI 29.94cmAO Mean GR.8mmHg IVELISSE (VMAX)2.91te6XXU (VTI)2.12cm2 Mitral Valve MV E Tcufrzmy489.4cm/sMV E Peak Gr.6mmHg MV DECEL CJER490roHG A Xcwjwval403.1cm/s MV E Mean Gr.2mmHgE/A Ratio1.1 Pulmonary Valve PV Peak Spagrhsb163.8cm/sPV Peak Grad.8mmHg Tricuspid Valve TR P. Bwdlluju042cq/sTR Peak Gr.37mmHg Pulmonary Vein S1 Svtojqpj45.2cm/sD2 Kjfqafti69.8cm/s LEFT VENTRICLE The left ventricle is normal size. There is normal left ventricular wall thickness. The left ventricu lar systolic function is normal. The ejection fraction is 60-65%. There is normal LV segmental wall m otion. The left ventricular diastolic function and filling is normal for age. No left ventricle throm bus noted on this study. There is no ventricular septal defect visualized. There is no left ventricul ar aneurysm. There is no mass noted in the left ventricle. RIGHT VENTRICLE The right ventricle is normal size. There is normal right ventricular wall thickness. The right ventr icular systolic function is normal. ATRIA The left atrium is mildly dilated. The right atrium size is normal. The interatrial septum is intact with no evidence for an atrial septal defect or patent foramen ovale as noted on 2-D or Doppler imagi ng. AORTIC VALVE The aortic valve is normal in structure and function. Doppler and Color Flow revealed no significant aortic regurgitation. There is no significant aortic valvular stenosis. There is no aortic valvular v egetation. MITRAL VALVE The mitral valve is normal in structure and function. There is no evidence of mitral valve prolapse. There is no mitral valve stenosis. Doppler and Color-flow revealed trace to mild mitral regurgitation . TRICUSPID VALVE The tricuspid valve is normal in structure and function. Doppler and Color Flow revealed trace tricus pid regurgitation. The PA pressure was estimated at 40 mmHg. There is no tricuspid valve prolapse or vegetation. There is no tricuspid valve stenosis. PULMONIC VALVE The pulmonic valve is not well seen. Doppler and Color Flow revealed no pulmonic valvular regurgitati on. There is no pulmonic valvular stenosis. GREAT VESSELS The aortic root is normal in size. The ascending aorta is normal in size. The pulmonary artery is nor mal. The IVC is normal in size and collapses >50% with inspiration. PERICARDIAL EFFUSION There is no pleural effusion. There is no evidence of significant pericardial effusion. Critical Notification Critical Value: No <Conclusion> The left ventricular systolic function is normal. The ejection fraction is 60-65%. There is normal LV segmental wall motion. Trace to mild mitral regurgitation. Trace tricuspid regurgitation. The PA pressure was estimated at 40 mmHg. There is no evidence of significant pericardial effusion. Signed by : Christian Tucker, Electronically Approved : 09/28/2021 16:50:18
== END ==
LOC: ECHO 13:59
PROVIDERS: ATTEND Physician Assistant
DX: I34.0 Nonrheumatic mitral (valve) insufficiency (principal); I10 Essential (primary) hypertension; R01.1 Cardiac murmur, unspecified; R55 Syncope and collapse
CPT/HCPCS: 93306

== ENCOUNTER → 2021-11-05 | Outpatient (CLI) | payer OTHER ==
--- NOTE | 2021-11-05 14:37 | RAD ---
EXAM: Chest, 2 views. HISTORY: Syncope. COMPARISON: 12/17/2020 FINDINGS: 2 views of the chest are obtained. There is linear atelectasis or infiltrate within the bashir ateral mid thorax and lingula. There is no consolidation, pleural effusion or pneumothorax. The heart is normal in size. IMPRESSION: Linear atelectasis or infiltrate within the bilateral mid thorax and lingula. Electronically signed by: Marge Rodriguez MD (11/05/2021 2:35 PM) [id number]
== END ==
LOC: RAD 13:19
PROVIDERS: ATTEND Internal Medicine Critical Care Medicine
DX: J98.11 Atelectasis (principal); R06.02 Shortness of breath
CPT/HCPCS: 71046